=== PATIENT | female | born 1935 | race Caucasian/White ===

== ENCOUNTER → 2016-04-24 | Outpatient (CLI) | payer MEDICARE, BC ==
[2016-04-24 10:29] LABS: CHLORIDE,CL 104 mmol/L (98-110); SODIUM,NA 138 mmol/L (136-146)
== END ==
LOC: MW.CHFP 09:44
PROVIDERS: ATTEND Emergency Medicine
DX: M79.603 Pain in arm, unspecified (principal); I10 Essential (primary) hypertension
CPT/HCPCS: 36415; 80048; 85027; 85652; G0463

== ENCOUNTER 2016-05-12 12:40 | Emergency (ER) | payer MEDICARE, BC ==
--- NOTE | 2016-05-12 13:35 | EDM.PDOC ---
ED HPI GENERAL MEDICAL PROBLEM - General Chief Complaint: General Stated Complaint: DIZZY Time Seen by Provider: 05/12/16 12:44 Source of Information: Reports: Patient History Limitations: Reports: No limitations - History of Present Illness INITIAL COMMENTS - FREE TEXT/NARRATIVE: The patient presents for blood pressure check. She states that she is on 3 blood pressure medications. She ate her oatmeal and took her blood pressure medications. She then checked her blood pressure about 2 hours later and it was 188/89 and felt a little dizzy. She states that she just came here to get a recheck of but she was told that she had to be seen. Her blood pressure is now 162/74 she is completely asymptomatic. She never had any chest pain, SOB, visual symptoms or any other problems. She states that she will followup with her regular doctor for possibly tweaking her medication regimen. no pain Pain Score (Numeric/FACES): 0 - Related Data Allergies Allergy/AdvReac Type Severity Reaction Status Date / Time No Known Allergies Allergy Verified 05/12/16 12:49 Home Meds: Home Meds Aspirin [Low Dose Aspirin EC] 1 tab PO DAILY 03/21/14 [History] Flaxseed [Flaxseed Oil] 1 cap PO DAILY 03/21/14 [History] Losartan/Hydrochlorothiazide [Losartan-HCTZ 100-25 MG] 1 tab PO DAILY 03/21/14 [ History] Metoprolol Succinate 1 tab PO DAILY 03/21/14 [History] Potassium Chloride 20 meq PO DAILY 03/21/14 [History] amLODIPine [Norvasc] 5 mg PO DAILY 08/18/15 [History] Ca/D3/Mag#11/Zinc/Box Brander/Norman/Bor [Caltrate Plus Tablet] 1 each PO DAILY 05/12/16 [ History] Past Medical History HEENT History: Reports: None Cardiovascular History: Reports: Hypertension Respiratory History: Reports: None Gastrointestinal History: Reports: None Genitourinary History: Reports: None INTAKE MAN History: Reports: None Musculoskeletal History: Reports: None, Back pain, chronic Neurological History: Reports: None Psychiatric History: Reports: Anxiety Endocrine/Metabolic History: Reports: None Hematologic History: Reports: None Immunologic History: Reports: None Oncologic (Cancer) History: Reports: Breast Other Oncologic History: right breast Dermatologic History: Reports: None - Infectious Disease History Infectious Disease History: Reports: None - Past Surgical History Head Surgeries/Procedures: Reports: None HEENT Surgical History: Reports: None Cardiovascular Surgical History: Reports: None Respiratory Surgical History: Reports: None GI Surgical History: Reports: None Female Surgical History: Reports: Breast biopsy, Hysterectomy Oncologic Surgical History: Reports: Biopsy of breast Dermatological Surgical History: Reports: None Social & Family History - Family History Family Medical History: Noncontributory - Tobacco Use Smoking Status *Q: Never Smoker Years of Tobacco use: 10 Second Hand Smoke Exposure: No - Caffeine Use Caffeine Use: Reports: Coffee - Alcohol Use Days Per Week of Alcohol Use: 0 - Recreational Drug Use Recreational Drug Use: No ED ROS GENERAL - Review of Systems Review Of Systems: ROS reveals no pertinent complaints other than HPI. ED EXAM, GENERAL - Physical Exam Exam: See Below Exam Limited By: No limitations General Appearance: alert, no apparent distress Ears: normal external exam Nose: normal inspection Throat/Mouth: Normal inspection Head: atraumatic, normocephalic Neck: normal inspection Respiratory/Chest: no respiratory distress, lungs clear, normal breath sounds Cardiovascular: normal peripheral pulses, regular rate, rhythm, no edema, no murmur GI/Abdominal: soft Extremities: normal inspection Neurological: alert, oriented, normal cognition, no motor/sensory deficits Psychiatric: normal affect, normal mood Skin Exam: Warm, Dry, Intact, Normal color, No rash Lymphatic: no adenopathy Course - Vital Signs Last Recorded V/S: Last Vital Signs Temp 37.1 C 05/12/16 12:51 Pulse 77 05/12/16 12:51 Resp 16 05/12/16 12:51 BP 162/74 H 05/12/16 12:51 Pulse Ox 96 05/12/16 12:51 Departure - Departure Time of Disposition: 13:35 Disposition: Home, Self-Care 01 Condition: good Clinical Impression: Essential hypertension Forms: ED Department Discharge Additional Instructions: 1. return to ER promptly for chest pain, headache, stroke symptoms, elevated blood pressure at home. 2. see your primary care physician for a review of your blood pressure control regimen.
[2016-05-12 13:48] VITALS: BP 148/69
== END 2016-05-12 13:46 | disposition home or self-care (01) ==
LOC: MW.ED 12:40
DX: I10 Essential (primary) hypertension (principal); Z90.710 Acquired absence of both cervix and uterus; Z79.82 Long term (current) use of aspirin; Z79.899 Other long term (current) drug therapy; Z85.3 Personal history of malignant neoplasm of breast
CPT/HCPCS: 99282

== ENCOUNTER → 2016-05-15 | Outpatient (CLI) | payer MEDICARE, BC | LOC: MW.CHFP 08:00 | PROVIDERS: ATTEND Physician Assistant | DX: L01.00 Impetigo, unspecified (principal); I10 Essential (primary) hypertension | CPT/HCPCS: G0463 ==

== ENCOUNTER → 2016-06-28 | Outpatient (CLI) | payer MEDICARE, BC ==
--- NOTE | 2016-06-29 14:47 | MY ---
EXAMINATION: Bilateral digital mammography utilizing CAD. HISTORY: Screening exam. Comparison is made to previous studies dated 06/22/2015, 06/16/2014. FINDINGS: Bilateral heterogeneously dense breast tissue. Postsurgical changes are noted within th e left breast. No suspicious calcifications, masses or architectural distortions. No pathologic ap pearing lymph nodes, no abnormal skin thickening or nipple inversion. CAD highlighted regions appe ar normal at this time. IMPRESSION: BI-RADS category II - Benign finding. Continued screening according to ACR-ACS guidelin es suggested. THE FALSE-NEGATIVE RATE OF MAMMOGRAM IS APPROXIMATELY 10%. MANAGEMENT OF A PALPABLE ABNORMALITY MUST BE BASED UPON CLINICAL GROUNDS. SENSITIVITY FOR DETECTION OF ABNORMALITIES IN DENSE BREASTS IS LOW. NOTE: A letter will be sent to the patient regarding findings. [facility] -- KARMEN Verma [phone] - FAX [phone]
--- NOTE | 2016-07-03 12:57 | XA ---
Exam Date: 06/28/16 Patient's Age: 81 HEIGHT: 65.0 in. WEIGHT: 150.0 lbs. INDICATIONS: Breast CA, currently menopausal, hysterectomy FRACTURES: TREATMENTS: Amlodipine, Losartan, metoprolol ASSESSMENT: The BMD measured at AP Spine L1-L4 is 0.941 g/cm2 with a T-score of -2.0. This patient is [id number] osteopenic according to World Health Organization (WHO) criteria. Bone density is between 10% and 25% below young normal. Fracture risk is moderate. Treatment is advised. The BMD measured at Femur Troch Mean is 0.672 g/cm2 with a T-score of -1.6 is considered moderately low. Fracture risk is moderate. Treatment is advised if there are other risk factors. RESULTS: Site Region Age Classification T-Score BMD AP Spine L1-L4 81.1 Osteopenia -2.0 0.941 g/cm2 Dual Femur Neck Mean 81.1 Osteopenia -1.4 0.843 g/cm2 Dual Femur Troch Mean 81.1 N/A -1.6 0.672 g/cm2 Dual Femur Total Mean 81.1 Osteopenia -1.5 0.823 g/cm2 World Health Organization - Criteria for post-menopausal, women: Normal: T-Score at or above -1 SD Osteopenia: T-Score between -1 and -2.5 SD Osteoporosis: T-Score at or below -2.5 SD RECOMMENDATION: Pharmacologic treatment recommendations & Initiate pharmacologic treatment: - In those with hip or vertebral (clinical or asymptomatic) fractures - In those with T -scores <-2.5 at the femoral neck, total hip, or lumbar spine by DXA - In postmenopausal women and men age 50 and older with low bone mass (T-score between -1.0 and -2.5, osteopenia) at the femoral neck, total hip, or lumbar spine by DXA and a 10-year hip fracture probability >3 % or a 10-year major osteoporosis-related fracture probability >20% based on the [place]-adapted WHO absolute fracture risk model (Fracture Risk Algorithm (FRAX); www. NOF.org and www.shef.ac.uk/FRAX) FOLLOW UP: People with diagnosed cases of osteoporosis or at high risk for fracture should have regular bone mineral density tests. For patients eligible for Medicare, routine testing is allowed once every 2 years. The testing frequency can be increased to 1 year for patients who have rapidly progressing disease, those who are reviewing or discontinuing medial therapy to restore bone mass, or have additional risk factors. People with diagnosed cases of osteoporosis or osteopenia should be regularly tested for bone mineral density. For patient eligible for Medicare, routine testing is allowed once every 2 years. The testing frequency can be increased to 1 year for patients who have rapidly progressing disease, or for those who are receiving medial therapy to restore bone mass. [facility] [place] -- KARMEN Verma [phone] - FAX: [phone] XAVIER
== END ==
LOC: MW.MAM 13:01
PROVIDERS: ATTEND Emergency Medicine
DX: Z00.00 Encounter for general adult medical examination without abnormal findings (principal); Z12.31 Encounter for screening mammogram for malignant neoplasm of breast; M85.89 Other specified disorders of bone density and structure, multiple sites
CPT/HCPCS: 77080; G0202

== ENCOUNTER 2017-03-12 21:20 | Emergency (ER) | payer MEDICARE, BC ==
[2017-03-12] MEDS ORDERED: Sodium Chloride 0.9% 10 ML Syringe FLUSH PRN (21:24)
[2017-03-12] MEDS ORDERED: Sodium Chloride 0.9% 2.5 ML Syringe FLUSH PRN (21:24)
--- NOTE | 2017-03-12 21:26 | EDM.PDOC ---
ED HPI GENERAL MEDICAL PROBLEM - General Chief Complaint: Respiratory Problem Stated Complaint: SHORTNESS OF BREATH/COUGH Time Seen by Provider: 03/12/17 21:23 - History of Present Illness INITIAL COMMENTS - FREE TEXT/NARRATIVE: HISTORY AND PHYSICAL: History of present illness: Patient is an 81-year-old white female presents with a concern of cough and difficulty breathing she states she feels like her throat closes after coughing episodes she had a cough for 2-3 days but states this other issue is been times tonight she denies fever chills nausea vomiting chest pain abdominal pain or other concern Review of systems: As per history of present illness and below otherwise all systems reviewed and negative. Past medical history: As per history of present illness and as reviewed below otherwise noncontributory. Surgical history: As per history of present illness and as reviewed below otherwise noncontributory. Social history: No reported history of drug or alcohol abuse. Family history: As per history of present illness and as reviewed below otherwise noncontributory. Physical exam: HEENT: Atraumatic, normocephalic, pupils reactive, negative for conjunctival pallor or scleral icterus, mucous membranes moist, throat clear, neck supple, nontender, trachea midline. Lungs: Clear to auscultation, breath sounds equal bilaterally, chest nontender. Heart: S1S2, regular, negative for clicks, rubs, or JVD. Abdomen: Soft, nondistended, nontender. Negative for masses or hepatosplenomegaly. Negative for costovertebral tenderness. Pelvis: Stable nontender. Genitourinary: Deferred. Rectal: Deferred. Extremities: Atraumatic, negative for cords or calf pain. Neurovascular unremarkable. Neuro: Awake, alert, oriented. Cranial nerves II through XII unremarkable. Cerebellum unremarkable. Motor and sensory unremarkable throughout. Exam nonfocal. Diagnostics: CBC CMP troponin PT/INR chest x-ray soft tissue neck x-ray influenza screen Therapeutics: IV O2 monitor Impression: #1 dyspnea #2 pneumonitis Definitive disposition and diagnosis as appropriate pending reevaluation and review of above. - Related Data Allergies Allergy/AdvReac Type Severity Reaction Status Date / Time No Known Allergies Allergy Verified 03/12/17 21:44 Home Meds: Home Meds Aspirin [Low Dose Aspirin EC] 1 tab PO DAILY 03/21/14 [History] Flaxseed [Flaxseed Oil] 1 cap PO DAILY 03/21/14 [History] Losartan/Hydrochlorothiazide [Losartan-HCTZ 100-25 MG] 1 tab PO DAILY 03/21/14 [ History] Metoprolol Succinate 1 tab PO DAILY 03/21/14 [History] Potassium Chloride 20 meq PO DAILY 03/21/14 [History] amLODIPine [Norvasc] 5 mg PO DAILY 08/18/15 [History] Ca/D3/Mag#11/Zinc/Mash Filter Cloth Changer/Norman/Bor [Caltrate Plus Tablet] 1 each PO DAILY 05/12/16 [ History] Past Medical History HEENT History: Reports: None Cardiovascular History: Reports: Hypertension Respiratory History: Reports: None Gastrointestinal History: Reports: None Genitourinary History: Reports: None 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 Musculoskeletal History: Reports: None, Back Pain, Chronic Neurological History: Reports: None Psychiatric History: Reports: Anxiety Endocrine/Metabolic History: Reports: None Hematologic History: Reports: None Immunologic History: Reports: None Oncologic (Cancer) History: Reports: Breast Other Oncologic History: right breast Dermatologic History: Reports: None - Infectious Disease History Infectious Disease History: Reports: None - Past Surgical History Female Surgical History: Reports: Breast Biopsy, Hysterectomy Oncologic Surgical History: Reports: Biopsy of Breast Social & Family History - Family History Family Medical History: Noncontributory - Tobacco Use Smoking Status *Q: Never Smoker Years of Tobacco use: 10 Second Hand Smoke Exposure: No - Caffeine Use Caffeine Use: Reports: Coffee - Alcohol Use Days Per Week of Alcohol Use: 0 - Recreational Drug Use Recreational Drug Use: No ED ROS GENERAL - Review of Systems Review Of Systems: ROS reveals no pertinent complaints other than HPI. ED EXAM, GENERAL - Physical Exam Exam: See Below (See dictation) Course - Vital Signs Last Recorded V/S: Last Vital Signs Temp 36.3 C 03/12/17 21:44 Pulse 82 03/12/17 21:44 Resp 18 03/12/17 21:44 BP 188/79 H 03/12/17 21:44 Pulse Ox 97 03/12/17 21:44 - Orders/Labs/Meds Orders: Active Orders 24 hr Category Date Time Status Cardiac Monitoring [RC] . DIRECTED Care 03/12/17 21:24 Active EKG Documentation Completion [RC] STAT Care 03/12/17 21:24 Active Oxygen Therapy, ED [RC] ASDIRECTED Care 03/12/17 21:24 Active Pulse Oximetry [RC] ASDIRECTED Care 03/12/17 21:24 Active Chest 1V Frontal [CR] Stat Exams 03/12/17 21:24 Taken Neck Soft Tissue [CR] Stat Exams 03/12/17 21:24 Taken Sodium Chloride 0.9% [Normal Saline] 1,000 ml Med 03/12/17 21:30 Active IV STAT Sodium Chloride 0.9% [Saline Flush] Med 03/12/17 21:24 Active 10 ml FLUSH ASDIRECTED PRN Sodium Chloride 0.9% [Saline Flush] Med 03/12/17 21:24 Active 2.5 ml FLUSH ASDIRECTED PRN Saline Lock Insert [OM.PC] Stat Oth 03/12/17 21:24 Ordered Medication Orders Sodium Chloride (Normal Saline) 1,000 mls @ 125 mls/hr IV STAT MEENAKSHI Last Admin: 03/12/17 21:36 Dose: 125 mls/hr Sodium Chloride (Saline Flush) 10 ml FLUSH ASDIRECTED PRN PRN Reason: Keep Vein Open Sodium Chloride (Saline Flush) 2.5 ml FLUSH ASDIRECTED PRN PRN Reason: Keep Vein Open Labs: Laboratory Tests 03/12/17 03/12/17 03/12/17 Range/Units 21:32 21:32 21:32 WBC 5.02 (4.0-11.0) K/uL RBC 4.62 (4.30-5.90) M/uL Hgb 13.3 (12.0-16.0) g/dL Hct 39.3 (36.0-46.0) % MCV 85.1 (80.0-98.0) fL MCH 28.8 (27.0-32.0) pg MCHC 33.8 (31.0-37.0) g/dL RDW Std Deviation 41.9 (28.0-62.0) fl RDW Coeff of Cuauhtemoc 14 (11.0-15.0) % Plt Count 185 (150-400) K/uL MPV 9.60 (7.40-12.00) fL Add Manual Diff YES Neutrophils % (Manual) 28 L (48.0-80.0) % Band Neutrophils % 4 % Lymphocytes % (Manual) 60 H (16.0-40.0) % Monocytes % (Manual) 8 (0.0-15.0) % Nucleated RBC % 0.0 /100WBC Absolute Seg Neuts 1.4 (1.4-5.7) Band Neutrophils # 0.2 Lymphocytes # (Manual) 3.0 H (0.6-2.4) Monocytes # (Manual) 0.4 (0.0-0.8) Nucleated RBCs # 0 K/uL INR 1.09 (0.86-1.11) Sodium 134 L (136-146) mmol/L Potassium 3.3 L (3.5-5.1) mmol/L Chloride 100 (98-110) mmol/L Carbon Dioxide 21 (21-31) mmol/L BUN 25 H (6.0-23.0) mg/dL Creatinine 1.2 (0.6-1.5) mg/dL Est Cr Clr Drug Dosing 34.42 mL/min Estimated GFR (MDRD) 43.1 ml/min Glucose 101 (60-110) mg/dL Calcium 10.0 (8.8-10.8) mg/dL Total Bilirubin 0.3 (0.1-1.5) mg/dL AST 24 (5-40) IU/L ALT 18 (8-54) IU/L Alkaline Phosphatase 80 (40-150) Troponin I < 0.10 (0.0-0.29) NG/ML B-Natriuretic Peptide (<100) PG/ML Total Protein 7.9 (6.0-8.0) g/dL Albumin 4.3 (3.4-4.8) g/dL Globulin 3.6 H (2.0-3.5) g/dL Albumin/Globulin Ratio 1.2 L (1.3-2.8) Urine Color Urine Appearance Urine pH (5.0-8.0) Ur Specific Font[place] (1.001-1.035) Urine Protein (NEGATIVE) mg/dL Urine Glucose (UA) (NEGATIVE) mg/dL Urine Ketones (NEGATIVE) mg/dL Urine Occult Blood (NEGATIVE) Urine Nitrite (NEGATIVE) Urine Bilirubin (NEGATIVE) Urine Urobilinogen (<2.0) EU/dL Ur Leukocyte Esterase (NEGATIVE) Urine RBC (0-2/HPF) Urine WBC (0-5/HPF) Ur Epithelial Cells (NONE-FEW) Urine Bacteria (NEGATIVE) 03/12/17 03/12/17 Range/Units 21:32 21:37 WBC (4.0-11.0) K/uL RBC (4.30-5.90) M/uL Hgb (12.0-16.0) g/dL Hct (36.0-46.0) % MCV (80.0-98.0) fL MCH (27.0-32.0) pg MCHC (31.0-37.0) g/dL RDW Std Deviation (28.0-62.0) fl RDW Coeff of Cuauhtemoc (11.0-15.0) % Plt Count (150-400) K/uL MPV (7.40-12.00) fL Add Manual Diff Neutrophils % (Manual) (48.0-80.0) % Band Neutrophils % % Lymphocytes % (Manual) (16.0-40.0) % Monocytes % (Manual) (0.0-15.0) % Nucleated RBC % /100WBC Absolute Seg Neuts (1.4-5.7) Band Neutrophils # Lymphocytes # (Manual) (0.6-2.4) Monocytes # (Manual) (0.0-0.8) Nucleated RBCs # K/uL INR (0.86-1.11) Sodium (136-146) mmol/L Potassium (3.5-5.1) mmol/L Chloride (98-110) mmol/L Carbon Dioxide (21-31) mmol/L BUN (6.0-23.0) mg/dL Creatinine (0.6-1.5) mg/dL Est Cr Clr Drug Dosing mL/min Estimated GFR (MDRD) ml/min Glucose (60-110) mg/dL Calcium (8.8-10.8) mg/dL Total Bilirubin (0.1-1.5) mg/dL AST (5-40) IU/L ALT (8-54) IU/L Alkaline Phosphatase (40-150) Troponin I (0.0-0.29) NG/ML B-Natriuretic Peptide < 15 (<100) PG/ML Total Protein (6.0-8.0) g/dL Albumin (3.4-4.8) g/dL Globulin (2.0-3.5) g/dL Albumin/Globulin Ratio (1.3-2.8) Urine Color YELLOW Urine Appearance CLEAR Urine pH 5.5 (5.0-8.0) Ur Specific [place] 1.020 (1.001-1.035) Urine Protein NEGATIVE (NEGATIVE) mg/dL Urine Glucose (UA) NEGATIVE (NEGATIVE) mg/dL Urine Ketones NEGATIVE (NEGATIVE) mg/dL Urine Occult Blood SMALL H (NEGATIVE) Urine Nitrite NEGATIVE (NEGATIVE) Urine Bilirubin NEGATIVE (NEGATIVE) Urine Urobilinogen 0.2 (<2.0) EU/dL Ur Leukocyte Esterase SMALL (NEGATIVE) Urine RBC 1-2 (0-2/HPF) Urine WBC 1-2 (0-5/HPF) Ur Epithelial Cells FEW (NONE-FEW) Urine Bacteria FEW (NEGATIVE) Meds: Medications Generic Name Dose Route Start Last Admin Trade Name Freq PRN Reason Stop Dose Admin Sodium Chloride 1,000 mls @ 125 mls/hr 03/12/17 21:30 03/12/17 21:36 Normal Saline IV 125 mls/hr STAT MEENAKSHI Administration Sodium Chloride 10 ml 03/12/17 21:24 Saline Flush FLUSH ASDIRECTED PRN Keep Vein Open Sodium Chloride 2.5 ml 03/12/17 21:24 Saline Flush FLUSH ASDIRECTED PRN Keep Vein Open Departure - Departure Time of Disposition: 22:59 Disposition: Home, Self-Care 01 Condition: Good Clinical Impression: Tracheobronchitis - Discharge Information Forms: ED Department Discharge Additional Instructions: The following information is given to patients seen in the emergency department who are being discharged to home. This information is to outline your options for follow-up care. We provide all patients seen in our emergency department with a follow-up referral. The need for follow-up, as well as the timing and circumstances, are variable depending upon the specifics of your emergency department visit. If you don't have a primary care physician on staff, we will provide you with a referral. We always advise you to contact your personal physician following an emergency department visit to inform them of the circumstance of the visit and for follow-up with them and/or the need for any referrals to a consulting specialist. The emergency department will also refer you to a specialist when appropriate. This referral assures that you have the opportunity for followup care with a specialist. All of these measure are taken in an effort to provide you with optimal care, which includes your followup. Under all circumstances we always encourage you to contact your private physician who remains a resource for coordinating your care. When calling for followup care, please make the office aware that this follow-up is from your recent emergency room visit. If for any reason you are refused follow-up, please contact the [facility] emergency department at and asked to speak to the emergency department charge nurse. Augmentin as prescribed follow-up primary medical doctor 1-2 days return as needed as discussed push fluids - My Orders Last 24 Hours: My Active Orders 03/12/17 21:24 Cardiac Monitoring [RC] . DIRECTED EKG Documentation Completion [RC] STAT Oxygen Therapy, ED [RC] ASDIRECTED Pulse Oximetry [RC] ASDIRECTED Chest 1V Frontal [CR] Stat Neck Soft Tissue [CR] Stat Sodium Chloride 0.9% [Saline Flush] 10 ml FLUSH ASDIRECTED PRN Sodium Chloride 0.9% [Saline Flush] 2.5 ml FLUSH ASDIRECTED PRN Saline Lock Insert [OM.PC] Stat 03/12/17 21:30 Sodium Chloride 0.9% [Normal Saline] 1,000 ml IV STAT - Assessment/Plan Last 24 Hours: My Active Orders 03/12/17 21:24 Cardiac Monitoring [RC] . DIRECTED EKG Documentation Completion [RC] STAT Oxygen Therapy, ED [RC] ASDIRECTED Pulse Oximetry [RC] ASDIRECTED Chest 1V Frontal [CR] Stat Neck Soft Tissue [CR] Stat Sodium Chloride 0.9% [Saline Flush] 10 ml FLUSH ASDIRECTED PRN Sodium Chloride 0.9% [Saline Flush] 2.5 ml FLUSH ASDIRECTED PRN Saline Lock Insert [OM.PC] Stat 03/12/17 21:30 Sodium Chloride 0.9% [Normal Saline] 1,000 ml IV STAT
[2017-03-12] MEDS ORDERED: Sodium Chloride 0.9% 1,000 ML IV SCH (21:30)
[2017-03-12 22:07] LABS: CHLORIDE,CL 100 mmol/L (98-110); SODIUM,NA 134 mmol/L (136-146)
[2017-03-13 01:07] VITALS: BP 158/98
--- NOTE | 2017-03-13 14:16 | CR ---
EXAM DATE: 03/12/17 PATIENT'S AGE: 81 Patient: DAISY DAMICO Facility: [place], [place] Site . Site : 1935 Study: XRay Chest [id number]/[id number] 10:32:33 PM Ordering Physician: Francis Best Final Report: INDICATIONS: Cough. TECHNIQUE: Chest 1 view. COMPARISON: None FINDINGS: No pneumothorax or pleural effusion. Mild emphysema with biapical pleural- parenchymal scarring. The lungs are otherwise clear. Cardiac and mediastinal contours are within normal limits. Surgical clips in the right hemithorax. Bone demineralization and degenerative changes of the spine. IMPRESSION: No evidence of acute cardiopulmonary disease. Dictated by Vamsi Peoples MD @ 03/12/2017 10:55:37 PM Dictated by: Vamsi Peoples MD @ 03/12/2017 22:55:48 (Electronic Signature) Report Signed by Proxy. [email or web address]
--- NOTE | 2017-03-13 14:19 | CR ---
MEXAM DATE: 03/12/17 PATIENT'S AGE: 81 Patient: DAISY DAMICO Facility: [place], [place] Site . Site : 1935 Study: XRay ST Neck [id number] 10:33:18 PM Ordering Physician: Francis Best Final Report: INDICATION: Throat pain when coughing. TECHNIQUE: Soft tissue neck, two views. COMPARISON: None. FINDINGS: The prevertebral soft tissues and airway as imaged are unremarkable. The epiglottis is normal in appearance. No radiopaque foreign body demonstrated. Carotid artery calcifications. Bone demineralization and degenerative changes of the spine. IMPRESSION: Unremarkable soft tissue neck radiographs. Dictated by Vamsi Peoples MD @ 03/12/2017 10:54:14 PM Dictated by: Vamsi Peoples MD @ 03/12/2017 22:54:19 (Electronic Signature) Report Signed by Proxy. [email or web address]
== END 2017-03-12 23:17 | disposition home or self-care (01) ==
LOC: MW.ED 21:20
DX: J18.9 Pneumonia, unspecified organism (principal); J40 Bronchitis, not specified as acute or chronic; I10 Essential (primary) hypertension; Z79.82 Long term (current) use of aspirin; Z79.899 Other long term (current) drug therapy
CPT/HCPCS: 36415; 70360; 71045; 80053; 81001; 83880; 84484; 85025; 85610; 87804; 93005; 96360; 96361; 99285; J7040; 99284

== ENCOUNTER 2019-04-19 08:49 | Observation (INO) | payer MEDICARE, BC ==
[2019-04-19] MEDS ORDERED: Albuterol/Ipratropium 3.0-0.5 MG/3 ML Neb Soln NEB ONE ×2 (09:09→10:07)
--- NOTE | 2019-04-19 09:41 | CR ---
Chest: 2 views of the chest were obtained. Comparison: Prior chest x-ray of 03/12/17. Lungs are hyperinflated compatible with emphysematous change. Mild scoliosis is noted within the spine. Surgical clips are seen within the right breast. No acute parenchymal change is seen within either lung. Bony structures are osteopenic. Minimal degenerative change is scattered within the spine. Mild carotid artery calcification is seen. Impression: 1. Emphysematous change. 2. Other findings as noted above. 3. Nothing acute is appreciated. Diagnostic code #2 This report was dictated in [place] Standard Time
--- NOTE | 2019-04-19 09:55 | EDM.PDOC ---
ED HPI GENERAL MEDICAL PROBLEM - General Chief Complaint: Respiratory Problem Stated Complaint: COUGH Time Seen by Provider: 04/19/19 12:00 - History of Present Illness INITIAL COMMENTS - FREE TEXT/NARRATIVE: 83-year-old female history of hypertension nonsmoker presenting to ER for cough and shortness of breath. Her symptoms have been going on for 2 weeks. She says she has not had decreased exercise tolerance but that she hasn't really exert herself. denied chest pain, denied fever. No vomiting no leg swelling. Patient is concerned that she may have the flu. - Related Data Allergies Allergy/AdvReac Type Severity Reaction Status Date / Time No Known Allergies Allergy Verified 04/19/19 09:04 Home Meds: Home Meds Aspirin [Low Dose Aspirin EC] 1 tab PO DAILY 03/21/14 [History] Losartan/Hydrochlorothiazide [Losartan-HCTZ 100-25 MG] 1 tab PO DAILY 03/21/14 [ History] Metoprolol Succinate 1 tab PO DAILY 03/21/14 [History] Potassium Chloride 20 meq PO DAILY 03/21/14 [History] amLODIPine [Norvasc] 5 mg PO BID 08/18/15 [History] Cem/D3/Mag11/Zinc/Maintenance Trainer/Norman/Bor [Caltrate Plus Tablet] 1 each PO DAILY 05/12/16 [ History] oxyCODONE HCl/Acetaminophen [Oxycodone-Acetaminophen 5-325] 1 tab PO TID PRN [History] Past Medical History HEENT History: Reports: None Cardiovascular History: Reports: Hypertension Respiratory History: Reports: None Gastrointestinal History: Reports: None Genitourinary History: Reports: None P[employer] History: Reports: None Musculoskeletal History: Reports: None, Back Pain, Chronic Neurological History: Reports: None Psychiatric History: Reports: Anxiety Endocrine/Metabolic History: Reports: None Hematologic History: Reports: None Immunologic History: Reports: None Oncologic (Cancer) History: Reports: Breast Other Oncologic History: right breast Dermatologic History: Reports: None - Infectious Disease History Infectious Disease History: Reports: Chicken Pox, Measles, Mumps - Past Surgical History Head Surgeries/Procedures: Reports: None Female Surgical History: Reports: Breast Biopsy, Hysterectomy Oncologic Surgical History: Reports: Biopsy of Breast Social & Family History - Family History Family Medical History: Noncontributory - Tobacco Use Smoking Status *Q: Never Smoker - Caffeine Use Caffeine Use: Reports: Coffee - Recreational Drug Use Recreational Drug Use: No ED ROS GENERAL - Review of Systems Review Of Systems: See Below Constitutional: Denies: Fever HEENT: Reports: No Symptoms Respiratory: Reports: Shortness of Breath, Cough Cardiovascular: Reports: No Symptoms Endocrine: Reports: No Symptoms GI/Abdominal: Reports: No Symptoms : Reports: No Symptoms Musculoskeletal: Reports: No Symptoms Skin: Reports: No Symptoms Neurological: Reports: No Symptoms Psychiatric: Reports: No Symptoms Hematologic/Lymphatic: Reports: No Symptoms Immunologic: Reports: No Symptoms ED EXAM, GENERAL - Physical Exam Exam: See Below Exam Limited By: No Limitations General Appearance: Alert, No Apparent Distress Eye Exam: Bilateral Eye: Normal Inspection Nose: Normal Inspection Head: Atraumatic, Normocephalic Neck: Normal Inspection Respiratory/Chest: No Respiratory Distress, Other (mile expiratory wheezing noted ) Cardiovascular: Normal Peripheral Pulses, Regular Rate, Rhythm, No JVD. No: JVD GI/Abdominal: Soft (Female) Exam: Deferred. No: Normal External Exam Rectal (Female) Exam: Deferred Extremities: Normal Inspection, No Pedal Edema Neurological: Alert, Oriented, Normal Gait Psychiatric: Normal Affect Course - Vital Signs Last Recorded V/S: Last Vital Signs Temp 97.9 F 04/19/19 12:54 Pulse 97 04/19/19 14:09 Resp 18 04/19/19 12:54 BP 151/68 H 04/19/19 14:09 Pulse Ox 95 04/19/19 14:09 - Orders/Labs/Meds Orders: Active Orders 24 hr Category Date Time Status EKG 12 Lead [EKG Documentation Completion] [RC] URGENT Care 04/19/19 11:16 Active RT Aerosol Therapy [RC] ASDIRECTED Care 04/19/19 09:10 Active RT Aerosol Therapy [RC] ASDIRECTED Care 04/19/19 10:07 Active Labs: Laboratory Tests 04/19/19 04/19/19 04/19/19 Range/Units 09:30 09:30 09:30 WBC 12.67 H (4.0-11.0) K/uL RBC 4.67 (4.30-5.90) M/uL Hgb 13.1 (12.0-16.0) g/dL Hct 38.2 (36.0-46.0) % MCV 81.8 (80.0-98.0) fL MCH 28.1 (27.0-32.0) pg MCHC 34.3 (31.0-37.0) g/dL RDW Std Deviation 39.4 (28.0-62.0) fl RDW Coeff of Cuauhtemoc 13 (11.0-15.0) % Plt Count 308 (150-400) K/uL MPV 8.90 (7.40-12.00) fL Neut % (Auto) 70.5 (48.0-80.0) % Lymph % (Auto) 16.4 (16.0-40.0) % [place] % (Auto) 12.3 (0.0-15.0) % Eos % (Auto) 0.5 (0.0-7.0) % Baso % (Auto) 0.3 (0.0-1.5) % Neut # (Auto) 8.9 H (1.4-5.7) K/uL Lymph # (Auto) 2.1 (0.6-2.4) K/uL [place]win # (Auto) 1.6 H (0.0-0.8) K/uL Eos # (Auto) 0.1 (0.0-0.7) K/uL Baso # (Auto) 0.0 (0.0-0.1) K/uL Nucleated RBC % 0.0 /100WBC Nucleated RBCs # 0 K/uL D-Dimer, Quantitative 0.54 H (0.0-0.50) mg/L FEU Sodium 133 L (136-145) mmol/L Potassium 3.4 L (3.5-5.1) mmol/L Chloride 96 L (98-107) mmol/L Carbon Dioxide 25.6 (21.0-32.0) mmol/L BUN 16 (7.0-18.0) mg/dL Creatinine 1.1 H (0.6-1.0) mg/dL Est Cr Clr Drug Dosing 34.87 mL/min Estimated GFR (MDRD) 47.4 ml/min Glucose 106 (74-106) mg/dL Calcium 9.4 (8.5-10.1) mg/dL Total Bilirubin 0.6 (0.2-1.0) mg/dL AST 15 (15-37) IU/L ALT 20 (14-63) IU/L Alkaline Phosphatase 105 (46-116) U/L Troponin I (0.000-0.056) ng/mL B-Natriuretic Peptide (<100) PG/ML Total Protein 8.8 H (6.4-8.2) g/dL Albumin 3.5 (3.4-5.0) g/dL Globulin 5.3 H (2.6-4.0) g/dL Albumin/Globulin Ratio 0.7 L (0.9-1.6) 04/19/19 04/19/19 Range/Units 09:30 09:30 WBC (4.0-11.0) K/uL RBC (4.30-5.90) M/uL Hgb (12.0-16.0) g/dL Hct (36.0-46.0) % MCV (80.0-98.0) fL MCH (27.0-32.0) pg MCHC (31.0-37.0) g/dL RDW Std Deviation (28.0-62.0) fl RDW Coeff of Cuauhtemoc (11.0-15.0) % Plt Count (150-400) K/uL MPV (7.40-12.00) fL Neut % (Auto) (48.0-80.0) % Lymph % (Auto) (16.0-40.0) % Irwin % (Auto) (0.0-15.0) % Eos % (Auto) (0.0-7.0) % Baso % (Auto) (0.0-1.5) % Neut # (Auto) (1.4-5.7) K/uL Lymph # (Auto) (0.6-2.4) K/uL Irwin # (Auto) (0.0-0.8) K/uL Eos # (Auto) (0.0-0.7) K/uL Baso # (Auto) (0.0-0.1) K/uL Nucleated RBC % /100WBC Nucleated RBCs # K/uL D-Dimer, Quantitative (0.0-0.50) mg/L FEU Sodium (136-145) mmol/L Potassium (3.5-5.1) mmol/L Chloride (98-107) mmol/L Carbon Dioxide (21.0-32.0) mmol/L BUN (7.0-18.0) mg/dL Creatinine (0.6-1.0) mg/dL Est Cr Clr Drug Dosing mL/min Estimated GFR (MDRD) ml/min Glucose (74-106) mg/dL Calcium (8.5-10.1) mg/dL Total Bilirubin (0.2-1.0) mg/dL AST (15-37) IU/L ALT (14-63) IU/L Alkaline Phosphatase (46-116) U/L Troponin I < 0.050 (0.000-0.056) ng/mL B-Natriuretic Peptide 39 (<100) PG/ML Total Protein (6.4-8.2) g/dL Albumin (3.4-5.0) g/dL Globulin (2.6-4.0) g/dL Albumin/Globulin Ratio (0.9-1.6) Meds: Medications Discontinued Medications Generic Name Dose Route Start Last Admin Trade Name Freq PRN Reason Stop Dose Admin Albuterol/Ipratropium 3 ml 04/19/19 09:09 04/19/19 09:27 Duoneb 3.0-0.5 Mg/3 Ml NEB 04/19/19 09:10 3 ml ONETIME ONE Administration Albuterol/Ipratropium 3 ml 04/19/19 10:07 04/19/19 10:17 Duoneb 3.0-0.5 Mg/3 Ml NEB 04/19/19 10:08 3 ml ONETIME ONE Administration Azithromycin 500 mg 04/19/19 14:27 04/19/19 14:49 Zithromax PO 04/19/19 14:28 500 mg Q24H ONE Administration Sodium Chloride 1,000 mls @ 500 mls/hr 04/19/19 12:42 04/19/19 12:53 Normal Saline IV 04/19/19 14:41 500 mls/hr .BOLUS ONE Administration Iopamidol 50 ml 04/19/19 13:40 04/19/19 13:41 Isovue Multipack-370 (76%) IVPUSH 04/19/19 13:41 50 ml ONETIME ONE Administration Prednisone 40 mg 04/19/19 11:01 04/19/19 11:08 Prednisone PO 04/19/19 11:02 40 mg ONETIME ONE Administration - Re-Assessments/Exams Free Text/Narrative Re-Assessment/Exam: 04/19/19 15:10 Patient presented for cough or shortness of breath. Has been hypoxic to the low 90s. Slightly tachycardia. On exam she had some dyspnea on exertion, very mild expiratory wheezing. She desatted while ambulating. She did not improve after prednisone and neb treatments. CT PE showed possible pneumonitis. Troponin negative. BNP negative. ECG was nsr, no ischemic changes. Departure - Departure Time of Disposition: 15:14 Disposition: Admitted As Inpatient 66 Clinical Impression: COPD (chronic obstructive pulmonary disease) - Discharge Information Referrals: Danny Savage MD [Primary Care Provider] - Forms: ED Department Discharge Sepsis Event Note - Evaluation Sepsis Screening Result: No Definite Risk - Focused Exam Vital Signs: Vital Signs Temp Pulse Resp BP Pulse Ox 04/19/19 14:09 97 151/68 H 95 04/19/19 12:54 97.9 F 102 H 18 141/76 H 91 L 04/19/19 12:22 89 18 93 L 04/19/19 09:56 96 18 93 L 04/19/19 09:05 96.8 F L 95 20 148/69 H 94 L Date Exam was Performed: 04/19/19 Time Exam was Performed: 15:10 - My Orders Last 24 Hours: My Active Orders 04/19/19 09:10 RT Aerosol Therapy [RC] ASDIRECTED 04/19/19 10:07 RT Aerosol Therapy [RC] ASDIRECTED 04/19/19 11:16 EKG 12 Lead [EKG Documentation Completion] [RC] URGENT - Assessment/Plan Last 24 Hours: My Active Orders 04/19/19 09:10 RT Aerosol Therapy [RC] ASDIRECTED 04/19/19 10:07 RT Aerosol Therapy [RC] ASDIRECTED 04/19/19 11:16 EKG 12 Lead [EKG Documentation Completion] [RC] URGENT
[2019-04-19 09:59] LABS: CARBON DIOXIDE,CO2 25.6 mmol/L (21.0-32.0); POTASSIUM,K 3.4 mmol/L (3.5-5.1)
[2019-04-19] MEDS ORDERED: predniSONE 20 MG Tab PO ONE (11:01)
[2019-04-19] MEDS ORDERED: Sodium Chloride 0.9% 1,000 ML IV ONE (12:42)
[2019-04-19] MEDS ORDERED: Iopamidol 755 MG/ML 200 ML Multipack Bottle IVPUSH ONE (13:40)
--- NOTE | 2019-04-19 14:09 | CT ---
INDICATION : Dyspnea with cough. Elevated D-dimer. COMPARISON: None. TECHNIQUE: 50 mL Isovue-370 IV contrast with pulmonary arterial imaging. FINDINGS: Adequate pulmonary arterial vascular opacification. No filling defect appreciated. Peribronchial airspace opacities with nodular and patchy ill-defined appearance in the is left greater than right lower lobes with multiple associated fluid filled bronchi bilaterally. Mild pectus excavatum. Upper normal heart size. No pathologic adenopathy. IMPRESSION: 1. No pulmonary embolism. 2. Bilateral presumed aspiration pneumonitis, left greater than right. Please note that all CT scans at this facility use dose modulation, iterative reconstruction, and/or weight-based dosing when appropriate to reduce radiation dose to as low as reasonably achievable. Dictated by Jese Wright MD @ Apr 19 2019 2:02PM Signed by Dr. Jese Wright @ Apr 19 2019 2:06PM
[2019-04-19] MEDS ORDERED: Azithromycin 250 MG Tab PO ONE (14:27)
[2019-04-19] MEDS ORDERED: Acetaminophen 325 MG Tab PO PRN (17:11)
--- NOTE | 2019-04-19 17:18 | PCM.HP.2 ---
H&P History of Present Illness - General Date of Service: 04/19/19 Admit Problem/Dx: Admission Diagnosis/Problem Admission Diagnosis/Problem Hypoxia - History of Present Illness Initial Comments - Free Text/Narative: 83-year-old female history of hypertension, childhood asthma, h/o remote smoking in her 20s, currently nonsmoker presenting to ER for cough and shortness of breath. Patient states that her symptoms have been going on for 2 weeks. Patient sttaes she is usually very active but has not been able to exert herslef much without getting short of breath. Also c/o og having cold sores on her lips. Also c/o decreased appetite for past few days. Patient denied chest pain, denied fever. No vomiting no leg swelling. Patient is was found to be in low 90s in ER. Received some breathing treatments but her symptoms didn't improve much. CXR was unremarkable. D-Dimer was elevated so CTA was obtained which was negative for PE. WBC count slightly elevated, no fever, BP stable, creatinine was slightly elevated as well. Flu swab was negative, Patient is being admitted for management of possible COPD exacerbation with bronchitis. - Related Data Allergies/Adverse Reactions: Allergies Allergy/AdvReac Type Severity Reaction Status Date / Time No Known Allergies Allergy Verified 04/19/19 17:38 Home Medications: Home Meds Aspirin [Low Dose Aspirin EC] 1 tab PO DAILY 03/21/14 [History] Losartan/Hydrochlorothiazide [Losartan-HCTZ 100-25 MG] 100 mg PO DAILY 03/21/14 [History] Metoprolol Succinate 100 mg PO DAILY 03/21/14 [History] Potassium Chloride 10 meq PO BID 03/21/14 [History] amLODIPine [Norvasc] 10 mg PO BEDTIME 08/18/15 [History] Cem/D3/Mag11/Zinc/Weeder Thinner/Norman/Bor [Caltrate Plus Tablet] 1 each PO DAILY 05/12/16 [ History] oxyCODONE HCl/Acetaminophen [Oxycodone-Acetaminophen 5-325] 1 tab PO TID PRN [History] [place]-3 Fatty Acids/Fish Oil [Fish Oil 1,200 mg Softgel] 1 cap DAILY 04/19/19 [ History] hydroCHLOROthiazide [Hydrochlorothiazide] 25 mg PO DAILY 04/19/19 [History] Past Medical History HEENT History: Reports: None Cardiovascular History: Reports: Hypertension Respiratory History: Reports: None Gastrointestinal History: Reports: None Genitourinary History: Reports: None [employer] SALES History: Reports: None Musculoskeletal History: Reports: None, Back Pain, Chronic Neurological History: Reports: None Psychiatric History: Reports: Anxiety Endocrine/Metabolic History: Reports: None Hematologic History: Reports: None Immunologic History: Reports: None Oncologic (Cancer) History: Reports: Breast Other Oncologic History: right breast Dermatologic History: Reports: None - Infectious Disease History Infectious Disease History: Reports: Chicken Pox, Measles, Mumps - Past Surgical History Head Surgeries/Procedures: Reports: None Female Surgical History: Reports: Breast Biopsy, Hysterectomy Oncologic Surgical History: Reports: Biopsy of Breast Social & Family History - Family History Family Medical History: Noncontributory - Tobacco Use Smoking Status *Q: Never Smoker - Caffeine Use Caffeine Use: Reports: Coffee - Recreational Drug Use Recreational Drug Use: No H&P Review of Systems - Review of Systems: Review Of Systems: See Below General: Reports: Malaise, Weakness, Fatigue, Decreased Appetite. Denies: Fever , Chills, Diaphoresis HEENT: Denies: Dysphasia, Ear Pain Pulmonary: Reports: Shortness of Breath, Wheezing, Cough. Denies: Sputum Cardiovascular: Reports: Dyspnea on Exertion. Denies: Chest Pain, Palpitations , Orthopnea, Lightheadedness, Syncope, Claudication Gastrointestinal: Denies: Abdominal Pain, Anorexia, Black Stool, Bloody Stool Genitourinary: Denies: Dysuria, Frequency, Burning Musculoskeletal: Denies: Neck Pain, Shoulder Pain, Arm Pain Skin: Denies: Cyanosis, Jaundice, Mottled Psychiatric: Denies: Confusion, Depression, Mood Lability Neurological: Denies: Confusion, Dizziness, Headache Hematologic/Lymphatic: Denies: Anemia, Easy Bleeding, Easy Bruising Exam - Exam Exam: See Below - Vital Signs Vital Signs: Last Vital Signs Temp 36.6 C 04/19/19 12:54 Pulse 97 04/19/19 14:09 Resp 18 04/19/19 12:54 BP 151/68 H 04/19/19 14:09 Pulse Ox 95 04/19/19 14:09 Weight: 72.575 kg - Exam Quality Assessment: Supplemental Oxygen General: Alert, Oriented HEENT: Conjunctiva Clear, Other Neck: Supple, Trachea Midline Lungs: Decreased Breath Sounds, Wheezing Cardiovascular: Regular Rate, Regular Rhythm GI/Abdominal Exam: Normal Bowel Sounds, Soft, Non-Tender Skin: Warm, Dry Neuro Extensive - Mental Status: Alert, Oriented x3, Normal Mood/Affect, Normal Cognition - Patient Data Lab Results Last 24 hrs: Laboratory Results - last 24 hr 04/19/19 04/19/19 04/19/19 Range/Units 09:30 09:30 09:30 WBC 12.67 H (4.0-11.0) K/uL RBC 4.67 (4.30-5.90) M/uL Hgb 13.1 (12.0-16.0) g/dL Hct 38.2 (36.0-46.0) % MCV 81.8 (80.0-98.0) fL MCH 28.1 (27.0-32.0) pg MCHC 34.3 (31.0-37.0) g/dL RDW Std Deviation 39.4 (28.0-62.0) fl RDW Coeff of Cuauhtemoc 13 (11.0-15.0) % Plt Count 308 (150-400) K/uL MPV 8.90 (7.40-12.00) fL Neut % (Auto) 70.5 (48.0-80.0) % Lymph % (Auto) 16.4 (16.0-40.0) % [place] % (Auto) 12.3 (0.0-15.0) % Eos % (Auto) 0.5 (0.0-7.0) % Baso % (Auto) 0.3 (0.0-1.5) % Neut # (Auto) 8.9 H (1.4-5.7) K/uL Lymph # (Auto) 2.1 (0.6-2.4) K/uL [place] # (Auto) 1.6 H (0.0-0.8) K/uL Eos # (Auto) 0.1 (0.0-0.7) K/uL Baso # (Auto) 0.0 (0.0-0.1) K/uL Nucleated RBC % 0.0 /100WBC Nucleated RBCs # 0 K/uL D-Dimer, Quantitative 0.54 H (0.0-0.50) mg/L FEU Sodium 133 L (136-145) mmol/L Potassium 3.4 L (3.5-5.1) mmol/L Chloride 96 L (98-107) mmol/L Carbon Dioxide 25.6 (21.0-32.0) mmol/L BUN 16 (7.0-18.0) mg/dL Creatinine 1.1 H (0.6-1.0) mg/dL Est Cr Clr Drug Dosing 34.87 mL/min Estimated GFR (MDRD) 47.4 ml/min Glucose 106 (74-106) mg/dL Calcium 9.4 (8.5-10.1) mg/dL Total Bilirubin 0.6 (0.2-1.0) mg/dL AST 15 (15-37) IU/L ALT 20 (14-63) IU/L Alkaline Phosphatase 105 (46-116) U/L Troponin I (0.000-0.056) ng/mL B-Natriuretic Peptide (<100) PG/ML Total Protein 8.8 H (6.4-8.2) g/dL Albumin 3.5 (3.4-5.0) g/dL Globulin 5.3 H (2.6-4.0) g/dL Albumin/Globulin Ratio 0.7 L (0.9-1.6) 04/19/19 04/19/19 Range/Units 09:30 09:30 WBC (4.0-11.0) K/uL RBC (4.30-5.90) M/uL Hgb (12.0-16.0) g/dL Hct (36.0-46.0) % MCV (80.0-98.0) fL MCH (27.0-32.0) pg MCHC (31.0-37.0) g/dL RDW Std Deviation (28.0-62.0) fl RDW Coeff of Cuauhtemoc (11.0-15.0) % Plt Count (150-400) K/uL MPV (7.40-12.00) fL Neut % (Auto) (48.0-80.0) % Lymph % (Auto) (16.0-40.0) % [place] % (Auto) (0.0-15.0) % Eos % (Auto) (0.0-7.0) % Baso % (Auto) (0.0-1.5) % Neut # (Auto) (1.4-5.7) K/uL Lymph # (Auto) (0.6-2.4) K/uL [place] # (Auto) (0.0-0.8) K/uL Eos # (Auto) (0.0-0.7) K/uL Baso # (Auto) (0.0-0.1) K/uL Nucleated RBC % /100WBC Nucleated RBCs # K/uL D-Dimer, Quantitative (0.0-0.50) mg/L FEU Sodium (136-145) mmol/L Potassium (3.5-5.1) mmol/L Chloride (98-107) mmol/L Carbon Dioxide (21.0-32.0) mmol/L BUN (7.0-18.0) mg/dL Creatinine (0.6-1.0) mg/dL Est Cr Clr Drug Dosing mL/min Estimated GFR (MDRD) ml/min Glucose (74-106) mg/dL Calcium (8.5-10.1) mg/dL Total Bilirubin (0.2-1.0) mg/dL AST (15-37) IU/L ALT (14-63) IU/L Alkaline Phosphatase (46-116) U/L Troponin I < 0.050 (0.000-0.056) ng/mL B-Natriuretic Peptide 39 (<100) PG/ML Total Protein (6.4-8.2) g/dL Albumin (3.4-5.0) g/dL Globulin (2.6-4.0) g/dL Albumin/Globulin Ratio (0.9-1.6) Result Diagrams: 04/19/19 09:30 04/19/19 09:30 [facility] Results Last 24 hrs: Microbiology 04/19/19 09:25 Influenza Type A Antigen Screen - Final Nasopharyngeal Swab NEGATIVE INFLUENZA A VIRUS AG REFERENCE RANGE: NEGATIVE Influenza Type B Antigen Screen - Final NEGATIVE INFLUENZA B VIRUS AG REFERENCE RANGE: NEGATIVE Sepsis Event Note - Evaluation Sepsis Screening Result: No Definite Risk - Focused Exam Vital Signs: Vital Signs Temp Pulse Resp BP Pulse Ox 04/19/19 14:09 97 151/68 H 95 04/19/19 12:54 36.6 C 102 H 18 141/76 H 91 L 04/19/19 12:22 89 18 93 L 04/19/19 09:56 96 18 93 L 04/19/19 09:05 36.0 C L 95 20 148/69 H 94 L Date Exam was Performed: 04/19/19 Time Exam was Performed: 19:16 - Problem List (1) Bronchitis SNOMED Code(s): 49062340 ICD Code: J40 - BRONCHITIS, NOT SPECIFIED ACUTE OR CHRONIC Status: Acute Current Visit: Yes (2) COPD (chronic obstructive pulmonary disease) SNOMED Code(s): 62223736 ICD Code: J44.9 - CHRONIC OBSTRUCTIVE PULMONARY DISEASE, UNSPECIFIED Status : Acute Current Visit: Yes (3) Essential hypertension SNOMED Code(s): 32609764 ICD Code: I10 - ESSENTIAL (PRIMARY) HYPERTENSION Status: Acute Current Visit: No Problem List Initiated/Reviewed/Updated: Yes Orders Last 24hrs: Active Orders 24 hr Category Date Time Status Admission Status [Patient Status] [ADT] Stat ADT 04/19/19 15:14 Active Ambulate [RC] ASDIRECTED Care 04/19/19 17:11 Active Antiembolic Devices [RC] PER UNIT ROUTINE Care 04/19/19 17:12 Active EKG 12 Lead [EKG Documentation Completion] [RC] URGENT Care 04/19/19 11:16 Active Oxygen Therapy [RC] PRN Care 04/19/19 17:11 Active Pulse Oximetry [RC] PRN Care 04/19/19 17:11 Active RT Aerosol Therapy [RC] ASDIRECTED Care 04/19/19 09:10 Active RT Aerosol Therapy [RC] ASDIRECTED Care 04/19/19 10:07 Active RT Aerosol Therapy [RC] ASDIRECTED Care 04/19/19 17:15 Active VTE/DVT Education [RC] PER UNIT ROUTINE Care 04/19/19 17:11 Active Vital Signs [RC] Q4H Care 04/19/19 17:11 Active Heart Healthy Diet [DIET] Diet 04/19/19 Breakfast Active UA W/MICROSCOPIC [URIN] Routine Lab 04/19/19 17:11 Ordered Acetaminophen [Tylenol] Med 04/19/19 17:11 Ordered 650 mg PO Q4H PRN Albuterol/Ipratropium [DuoNeb 3.0-0.5 MG/3 ML] Med 04/19/19 17:11 Ordered 3 ml NEB Q4HRRT PRN Sodium Chloride 0.9% [Normal Saline] 1,000 ml Med 04/19/19 17:15 Ordered IV ASDIRECTED methylPREDNISolone Sod Succ [Solu-MEDROL] Med 04/20/19 09:00 Ordered 40 mg IVPUSH Q12H Sequential Compression Device [OM.PC] Per Unit Routine Oth 04/19/19 17:11 Ordered Medication Orders Acetaminophen (Tylenol) 650 mg PO Q4H PRN PRN Reason: Pain (Mild 1-3)/fever Albuterol/Ipratropium (Duoneb 3.0-0.5 Mg/3 Ml) 3 ml NEB Q4HRRT PRN PRN Reason: Shortness Of Breath/wheezing Sodium Chloride (Normal Saline) 1,000 mls @ 125 mls/hr IV ASDIRECTED [facility] Methylprednisolone Sodium Succinate (Solu-Medrol) 40 mg IVPUSH Q12H [facility] Assessment/Plan Comment:: A/P: 83 y/o F admitted for COPD/Bronchitis cont IV steroids, wean down as clinically appropriate cont oxygenation via nasal cannula DuoNebs PRN shortness of breath Azithromycin 250 PO daily resume home meds, hold Lopressor Topical acyclovir for herpes labialis monitor and replete electrolytes SCD for DVT ppx Dispo: d/c in 1-2 days
[2019-04-19] MEDS: Sodium Chloride 0.9% 1,000 ML IV SCH (18:26)
[2019-04-19] MEDS ORDERED: Acetaminophen/oxyCODONE 325-5 MG Tab PO PRN (19:11)
[2019-04-19] MEDS ORDERED: Potassium Chloride 10% 20 MEQ/15 ML Soln 30 ML UD Cup PO ONE (19:24)
[2019-04-19] MEDS: amLODIPine 5 MG Tab PO SCH (20:41)
[2019-04-20] MEDS: Sodium Chloride 0.9% 1,000 ML IV SCH ×2 (02:26→12:21)
[2019-04-20] MEDS: Albuterol/Ipratropium 3.0-0.5 MG/3 ML Neb Soln NEB PRN ×2 (06:48→09:21)
[2019-04-20] MEDS ORDERED: Magnesium Sulfate/Water 2 GM in Premix Bag 1 BAG IV ONE (08:11)
[2019-04-20] MEDS: methylPREDNISolone Sodium Succinate 40 MG/1 ML SDV IVPUSH SCH ×2 (08:28→21:43)
[2019-04-20] MEDS: Phosphorus #1 250 MG Tab PO SCH ×3 (08:32→17:39)
[2019-04-20] MEDS: Hydrochlorothiazide 25 MG Tab PO SCH (08:32)
[2019-04-20] MEDS: Azithromycin 250 MG Tab PO SCH (08:33)
[2019-04-20] MEDS: Aspirin 81 MG Tab.EC PO SCH (08:33)
[2019-04-20] MEDS: Fish Oil/Omega-3 Fatty Acids 1 Gm Cap PO SCH (08:36)
[2019-04-20] MEDS ORDERED: Benzonatate 100 MG Cap PO PRN (09:32)
[2019-04-20] MEDS: Fluticasone Propionate Nasal Spray 16 GM Bottle NASBOTH SCH (09:59)
[2019-04-20] MEDS: Acyclovir 200 MG Cap PO SCH ×3 (10:00→21:36)
[2019-04-20] MEDS: Albuterol/Ipratropium 3.0-0.5 MG/3 ML Neb Soln NEB SCH ×4 (10:13→21:21)
--- NOTE | 2019-04-20 11:55 | PCM.PN ---
- General Info Date of Service: 04/20/19 Admission Dx/Problem (Free Text): Admission Diagnosis/Problem Admission Diagnosis/Problem Hypoxia Subjective Update: Feeling SOB this morning, coughing a lot. doesn't feel safe to go home yet. Feels sinus congested. Functional Status: Reports: Pain Controlled, Tolerating Diet, Ambulating, Urinating - Review of Systems General: Reports: Malaise HEENT: Reports: Headaches, Sinus Congestion Pulmonary: Reports: Shortness of Breath, Cough, Wheezing. Denies: Sputum Cardiovascular: Reports: No Symptoms. Denies: Chest Pain, Palpitations Gastrointestinal: Reports: No Symptoms. Denies: Abdominal Pain, Nausea, Vomiting Genitourinary: Reports: No Symptoms Musculoskeletal: Reports: No Symptoms Skin: Reports: No Symptoms Neurological: Reports: No Symptoms Psychiatric: Reports: No Symptoms - Patient Data Vitals - Most Recent: Last Vital Signs Temp 98.3 F 04/20/19 07:53 Pulse 95 04/20/19 07:53 Resp 16 04/20/19 07:53 BP 141/64 H 04/20/19 07:53 Pulse Ox 93 L 04/20/19 07:53 Weight - Most Recent: 72.575 kg I&O - Last 24 Hours: Intake & Output 04/19/19 04/20/19 04/20/19 22:59 06:59 14:59 Intake Total 1930 Output Total 1250 Balance 680 Lab Results Last 24 Hours: Laboratory Results - last 24 hr 04/19/19 04/19/19 04/20/19 Range/Units 09:30 09:30 00:30 WBC (4.0-11.0) K/uL RBC (4.30-5.90) M/uL Hgb (12.0-16.0) g/dL Hct (36.0-46.0) % MCV (80.0-98.0) fL MCH (27.0-32.0) pg MCHC (31.0-37.0) g/dL RDW Std Deviation (28.0-62.0) fl RDW Coeff of Cuauhtemoc (11.0-15.0) % Plt Count (150-400) K/uL MPV (7.40-12.00) fL Neut % (Auto) (48.0-80.0) % Lymph % (Auto) (16.0-40.0) % [place] % (Auto) (0.0-15.0) % Eos % (Auto) (0.0-7.0) % Baso % (Auto) (0.0-1.5) % Neut # (Auto) (1.4-5.7) K/uL Lymph # (Auto) (0.6-2.4) K/uL [place] # (Auto) (0.0-0.8) K/uL Eos # (Auto) (0.0-0.7) K/uL Baso # (Auto) (0.0-0.1) K/uL Nucleated RBC % /100WBC Nucleated RBCs # K/uL D-Dimer, Quantitative 0.54 H (0.0-0.50) mg/L FEU Sodium (136-145) mmol/L Potassium (3.5-5.1) mmol/L Chloride (98-107) mmol/L Carbon Dioxide (21.0-32.0) mmol/L BUN (7.0-18.0) mg/dL Creatinine (0.6-1.0) mg/dL Est Cr Clr Drug Dosing mL/min Estimated GFR (MDRD) ml/min Glucose (74-106) mg/dL Calcium (8.5-10.1) mg/dL Phosphorus (2.6-4.7) mg/dL Magnesium (1.8-2.4) mg/dL B-Natriuretic Peptide 39 (<100) PG/ML Urine Color YELLOW Urine Appearance CLEAR Urine pH 5.5 (5.0-8.0) Ur Specific [place] 1.010 (1.001-1.035) Urine Protein NEGATIVE (NEGATIVE) mg/dL Urine Glucose (UA) NEGATIVE (NEGATIVE) mg/dL Urine Ketones NEGATIVE (NEGATIVE) mg/dL Urine Occult Blood NEGATIVE (NEGATIVE) Urine Nitrite NEGATIVE (NEGATIVE) Urine Bilirubin NEGATIVE (NEGATIVE) Urine Urobilinogen 0.2 (<2.0) EU/dL Ur Leukocyte Esterase NEGATIVE (NEGATIVE) Urine RBC 0-1 (0-2/HPF) Urine WBC 0-1 (0-5/HPF) Ur Epithelial Cells RARE (NONE-FEW) Urine Bacteria RARE (NEGATIVE) 04/20/19 04/20/19 Range/Units 05:20 05:20 WBC 12.17 H (4.0-11.0) K/uL RBC 3.87 L (4.30-5.90) M/uL Hgb 10.7 L (12.0-16.0) g/dL Hct 31.6 L (36.0-46.0) % MCV 81.7 (80.0-98.0) fL MCH 27.6 (27.0-32.0) pg MCHC 33.9 (31.0-37.0) g/dL RDW Std Deviation 39.5 (28.0-62.0) fl RDW Coeff of Cu[place]em[place] 13 (11.0-15.0) % Plt Count 303 (150-400) K/uL MPV 9.00 (7.40-12.00) fL Neut % (Auto) 73.1 (48.0-80.0) % Lymph % (Auto) 16.6 (16.0-40.0) % [place] % (Auto) 10.1 (0.0-15.0) % Eos % (Auto) 0.1 (0.0-7.0) % Baso % (Auto) 0.1 (0.0-1.5) % Neut # (Auto) 8.9 H (1.4-5.7) K/uL Lymph # (Auto) 2.0 (0.6-2.4) K/uL [place] # (Auto) 1.2 H (0.0-0.8) K/uL Eos # (Auto) 0.0 (0.0-0.7) K/uL Baso # (Auto) 0.0 (0.0-0.1) K/uL Nucleated RBC % 0.0 /100WBC Nucleated RBCs # 0 K/uL D-Dimer, Quantitative (0.0-0.50) mg/L FEU Sodium 136 (136-145) mmol/L Potassium 4.0 (3.5-5.1) mmol/L Chloride 102 (98-107) mmol/L Carbon Dioxide 23.0 (21.0-32.0) mmol/L BUN 15 (7.0-18.0) mg/dL Creatinine 0.9 (0.6-1.0) mg/dL Est Cr Clr Drug Dosing 39.18 mL/min Estimated GFR (MDRD) 59.8 ml/min Glucose 105 (74-106) mg/dL Calcium 8.8 (8.5-10.1) mg/dL Phosphorus 2.4 L (2.6-4.7) mg/dL Magnesium 1.7 L (1.8-2.4) mg/dL B-Natriuretic Peptide (<100) PG/ML Urine Color Urine Appearance Urine pH (5.0-8.0) Ur Specific [place] (1.001-1.035) Urine Protein (NEGATIVE) mg/dL Urine Glucose (UA) (NEGATIVE) mg/dL Urine Ketones (NEGATIVE) mg/dL Urine Occult Blood (NEGATIVE) Urine Nitrite (NEGATIVE) Urine Bilirubin (NEGATIVE) Urine Urobilinogen (<2.0) EU/dL Ur Leukocyte Esterase (NEGATIVE) Urine RBC (0-2/HPF) Urine WBC (0-5/HPF) Ur Epithelial Cells (NONE-FEW) Urine Bacteria (NEGATIVE) Junior Results Last 24 Hours: Microbiology 04/19/19 09:25 Influenza Type A Antigen Screen - Final Nasopharyngeal Swab NEGATIVE INFLUENZA A VIRUS AG REFERENCE RANGE: NEGATIVE Influenza Type B Antigen Screen - Final NEGATIVE INFLUENZA B VIRUS AG REFERENCE RANGE: NEGATIVE Med Orders - Current: Current Medications Acetaminophen (Tylenol) 650 mg PO Q4H PRN PRN Reason: Pain (Mild 1-3)/fever Acyclovir (Zovirax) 400 mg PO TID [facility] Last Admin: 04/20/19 10:00 Dose: 400 mg Albuterol/Ipratropium (Duoneb 3.0-0.5 Mg/3 Ml) 3 ml NEB Q4HRRT [facility] Last Admin: 04/20/19 10:13 Dose: Not Given Amlodipine Besylate (Norvasc) 10 mg PO BEDTIME [facility] Last Admin: 04/19/19 20:41 Dose: 10 mg Aspirin (Halfprin) 81 mg PO DAILY [facility] Last Admin: 04/20/19 08:33 Dose: 81 mg Azithromycin (Zithromax) 250 mg PO Q24H [facility] Last Admin: 04/20/19 08:33 Dose: 250 mg Benzonatate (Tessalon Perles) 100 mg PO TID PRN PRN Reason: Cough Last Admin: 04/20/19 10:00 Dose: 100 mg Fish Oil (Fish Oil) 1 gm PO DAILY [facility] Last Admin: 04/20/19 08:36 Dose: 1 gm Fluticasone Propionate (Flonase) 0 gm NASBOTH DAILY [facility] Last Admin: 04/20/19 09:59 Dose: 1 spray Hydrochlorothiazide (Hydrochlorothiazide) 25 mg PO DAILY [facility] Last Admin: 04/20/19 08:32 Dose: 25 mg Sodium Chloride (Normal Saline) 1,000 mls @ 125 mls/hr IV ASDIRECTED [facility] Last Admin: 04/20/19 02:26 Dose: 125 mls/hr Methylprednisolone Sodium Succinate (Solu-Medrol) 40 mg IVPUSH Q12H [facility] Last Admin: 04/20/19 08:28 Dose: 40 mg Oxycodone/Acetaminophen (Percocet 325-5 Mg) 1 tab PO TID PRN PRN Reason: Pain Sodium Phosphate (Neutra-Phos) 250 mg PO QID [facility] Stop: 04/21/19 00:01 Last Admin: 04/20/19 08:32 Dose: 250 mg Discontinued Medications Acyclovir (Zovirax 5% Oint) 0 gm TOP 5XDAY [facility] Last Admin: 04/20/19 06:42 Dose: Not Given Albuterol/Ipratropium (Duoneb 3.0-0.5 Mg/3 Ml) 3 ml NEB ONETIME ONE Stop: 04/19/19 09:10 Last Admin: 04/19/19 09:27 Dose: 3 ml Albuterol/Ipratropium (Duoneb 3.0-0.5 Mg/3 Ml) 3 ml NEB ONETIME ONE Stop: 04/19/19 10:08 Last Admin: 04/19/19 10:17 Dose: 3 ml Albuterol/Ipratropium (Duoneb 3.0-0.5 Mg/3 Ml) 3 ml NEB Q4HRRT PRN PRN Reason: Shortness Of Breath/wheezing Last Admin: 04/20/19 09:21 Dose: 3 ml Azithromycin (Zithromax) 500 mg PO Q24H ONE Stop: 04/19/19 14:28 Last Admin: 04/19/19 14:49 Dose: 500 mg Sodium Chloride (Normal Saline) 1,000 mls @ 500 mls/hr IV .BOLUS ONE Stop: 04/19/19 14:41 Last Admin: 04/19/19 12:53 Dose: 500 mls/hr Magnesium Sulfate 2 gm/ Premix 50 mls @ 50 mls/hr IV ONETIME ONE Stop: 04/20/19 09:10 Last Admin: 04/20/19 08:28 Dose: 50 mls/hr Iopamidol (Isovue Multipack-370 (76%)) 50 ml IVPUSH ONETIME ONE Stop: 04/19/19 13:41 Last Admin: 04/19/19 13:41 Dose: 50 ml Potassium Chloride (Potassium Chloride) 40 meq PO ONETIME ONE Stop: 04/19/19 19:25 Last Admin: 04/19/19 20:41 Dose: 40 meq Prednisone (Prednisone) 40 mg PO ONETIME ONE Stop: 04/19/19 11:02 Last Admin: 04/19/19 11:08 Dose: 40 mg - Exam Quality Assessment: DVT Prophylaxis. No: Supplemental Oxygen General: Alert, Oriented, Cooperative Neck: Supple, Other (sinus pressure and pain to palpation). No: Lymphadenopathy Lungs: Clear to Auscultation. No: Normal Respiratory Effort (dyspnea) Cardiovascular: Regular Rate, Regular Rhythm GI/Abdominal Exam: Normal Bowel Sounds, Soft, Non-Tender Extremities: Normal Inspection, Normal Range of Motion, Non-Tender, No Pedal Edema Neurological: No New Focal Deficit Psy/Mental Status: Alert, Normal Affect, Normal Mood Sepsis Event Note - Evaluation Sepsis Screening Result: Sepsis Risk - Focused Exam Vital Signs: Vital Signs Temp Pulse Resp BP Pulse Ox 04/20/19 07:53 98.3 F 95 16 141/64 H 93 L 04/20/19 04:59 97.9 F 120 H 18 137/71 95 04/20/19 00:22 98.2 F 81 16 131/58 L 94 L Date Exam was Performed: 04/20/19 Time Exam was Performed: 13:44 - Problem List & Annotations (1) Bronchitis SNOMED Code(s): 23226922 Code(s): J40 - BRONCHITIS, NOT SPECIFIED ACUTE OR CHRONIC Status: Acute Current Visit: Yes (2) COPD (chronic obstructive pulmonary disease) SNOMED Code(s): 67050663 Code(s): J44.9 - CHRONIC OBSTRUCTIVE PULMONARY DISEASE, UNSPECIFIED Status : Acute Current Visit: Yes (3) Essential hypertension SNOMED Code(s): 15799357 Code(s): I10 - ESSENTIAL (PRIMARY) HYPERTENSION Status: Acute Current Visit: No - Problem List Review Problem List Initiated/Reviewed/Updated: Yes - My Orders Last 24 Hours: My Active Orders 04/20/19 08:12 Phosphorus #1 [Neutra-Phos] 250 mg PO QID 04/20/19 09:30 Acyclovir [Zovirax] 400 mg PO TID 04/20/19 09:31 RT Aerosol Therapy [RC] ASDIRECTED 04/20/19 09:32 Benzonatate [Tessalon Perles] 100 mg PO TID PRN 04/20/19 09:45 Fluticasone Propionate [Flonase] See Dose Instructions NASBOTH DAILY 04/20/19 10:00 Albuterol/Ipratropium [DuoNeb 3.0-0.5 MG/3 ML] 3 ml NEB Q4HRRT - Plan Plan:: This 83 year old female admittd for COPD/ bronchitis vs reactive airway with URI. 1. COPD/Bronchitis vs reactive airway - cont IV steroids for now - cont oxygenation via nasal cannula as needed - DuoNebs scheduled for shortness of breath - Azithromycin 250 PO daily - Add Tessalon pearls for cough as well as Flonase 2. Oral herpes - Oral Acyclovir 3. HTN - Continue Amlodipine, hold lopressor for now. - Monitor HR on telemetry - monitor and replete electrolytes VTE prophylaxis: SCD Dispo: 1 day
[2019-04-20] MEDS: amLODIPine 5 MG Tab PO SCH (21:37)
[2019-04-21] MEDS: Phosphorus #1 250 MG Tab PO SCH (01:12)
[2019-04-21] MEDS: Albuterol/Ipratropium 3.0-0.5 MG/3 ML Neb Soln NEB SCH ×3 (01:13→09:31)
[2019-04-21] MEDS: Sodium Chloride 0.9% 1,000 ML IV SCH (04:21)
[2019-04-21] MEDS: Acyclovir 200 MG Cap PO SCH (05:53)
[2019-04-21 06:34] LABS: CARBON DIOXIDE,CO2 21.4 mmol/L (21.0-32.0); POTASSIUM,K 4.1 mmol/L (3.5-5.1)
[2019-04-21] MEDS ORDERED: predniSONE 20 MG Tab PO SCH (08:38)
[2019-04-21] MEDS: Hydrochlorothiazide 25 MG Tab PO SCH (09:07)
[2019-04-21] MEDS: Aspirin 81 MG Tab.EC PO SCH (09:08)
[2019-04-21] MEDS: Fish Oil/Omega-3 Fatty Acids 1 Gm Cap PO SCH (09:08)
[2019-04-21] MEDS: Azithromycin 250 MG Tab PO SCH (09:08)
[2019-04-21] MEDS: Fluticasone Propionate Nasal Spray 16 GM Bottle NASBOTH SCH (09:09)
[2019-04-21 11:54] VITALS: BP 130/60; PULSE 100
--- NOTE | 2019-04-21 12:33 | PCM.DCSUM1 ---
Discharge Summary - Hospital Course Brief History: 83-year-old female history of hypertension nonsmoker presenting to ER for cough and shortness of breath. Her symptoms have been going on for 2 weeks. She says she has not had decreased exercise tolerance but that she hasn' t really exert herself. denied chest pain, denied fever. No vomiting no leg swelling. Patient is concerned that she may have the flu. Diagnosis: Stroke: No - Discharge Data Discharge Date: 04/21/19 Discharge Disposition: Home, Self-Care 01 Condition: Good - Referral to Home Health Primary Care Physician: Danny Savage MD - Discharge Diagnosis/Problem(s) (1) Bronchitis SNOMED Code(s): 38565120 ICD Code: J40 - BRONCHITIS, NOT SPECIFIED ACUTE OR CHRONIC Status: Acute (2) COPD (chronic obstructive pulmonary disease) SNOMED Code(s): 77983073 ICD Code: J44.9 - CHRONIC OBSTRUCTIVE PULMONARY DISEASE, UNSPECIFIED Status : Acute (3) Essential hypertension SNOMED Code(s): 63946233 ICD Code: I10 - ESSENTIAL (PRIMARY) HYPERTENSION Status: Acute - Patient Instructions Diet: Regular Diet as Tolerated Activity: As Tolerated, No Strenuous Activities, Rest and Relax Today Showering/Bathing: May Shower Notify Provider of: Fever, Increased Pain, Swelling and Redness, Drainage, Nausea and/or Vomiting - Discharge Plan *PRESCRIPTION DRUG MONITORING PROGRAM REVIEWED*: Not Applicable *COPY OF PRESCRIPTION DRUG MONITORING REPORT IN PATIENT NING: Not Applicable Prescriptions/Med Rec: Acyclovir 400 mg PO TID #12 tablet Albuterol Sulfate [Albuterol Sulfate Hfa] 18 gm IH Q4H PRN #1 hfa.aer.ad PRN Reason: wheezing, shortness of breath Azithromycin [Zithromax] 250 mg PO Q24H #5 tablet Benzonatate [Tessalon Perle] 100 mg PO TID PRN #30 capsule PRN Reason: Cough predniSONE 40 mg PO WITHBREAKFAST #10 tablet Home Medications: Home Meds Aspirin [Low Dose Aspirin EC] 1 tab PO DAILY 03/21/14 [History] Losartan/Hydrochlorothiazide [Losartan-HCTZ 100-25 MG] 100 mg PO DAILY 03/21/14 [History] Metoprolol Succinate 100 mg PO DAILY 03/21/14 [History] Potassium Chloride 10 meq PO BID 01/25/15 [History] amLODIPine [Norvasc] 10 mg PO BEDTIME 08/18/15 [History] Cem/D3/Mag11/Zinc/Insecticide Maker/[place]/Bor [Caltrate 600+D Plus Tablet] 1 each PO DAILY [History] oxyCODONE HCl/Acetaminophen [Oxycodone-Acetaminophen 5-325] 1 tab PO TID PRN [History] [place]-3 Fatty Acids/Fish Oil [Fish Oil 1,200 mg Softgel] 1 cap DAILY 04/19/19 [ History] hydroCHLOROthiazide [Hydrochlorothiazide] 25 mg PO DAILY 04/19/19 [History] Acyclovir 400 mg PO TID #12 tablet 04/21/19 [Rx] Albuterol Sulfate [Albuterol Sulfate Hfa] 18 gm IH Q4H PRN #1 hfa.aer.ad [Rx] Azithromycin [Zithromax] 250 mg PO Q24H #5 tablet 04/21/19 [Rx] Benzonatate [Tessalon Perle] 100 mg PO TID PRN #30 capsule 04/21/19 [Rx] Fluticasone Propionate [Flonase] 1 spray NASBOTH DAILY #1 bottle 04/21/19 [Rx] predniSONE 40 mg PO WITHBREAKFAST #10 tablet 04/21/19 [Rx] Oxygen Therapy Mode: Room Air Patient Handouts: Albuterol inhalation powder, Chronic Obstructive Pulmonary Disease, [id number], Azithromycin tablets, Prednisone tablets, Acyclovir tablets or capsules, Acute Bronchitis, Adult, Benzonatate capsules Referrals: Danny Savage MD [Primary Care Provider] - 04/28/19 10:00 am - Discharge Summary/Plan Comment DC Time >30 min.: No Discharge Summary/Plan Comment: Admitting Diagnoses: Bronchitis reactive airway disease URI viral illness Discharge Diagnoses: Bronchitis reactive airway disease URI viral illness Oral herpes Joselyn was admitted secondary to shortness of breath and wheezing. She was treated for acute bronchitis likely related to URI viral illness, some remote history of smoking and asthma. Could be component of COPD, will need outpatient follow up with PFT to further evaluate. She was treated with Solumedrol, Azithromycin, and Duonebs. She disliked the nebs as she became very jittery, but they did help. Today she is feeling much better, still has cough intermittently, non productive. Nasal congestion improving. She is not hypoxic. VS stable. She will be discharged home today with Prednisone for 5 more days, Azithromycin for 4 more days and Albuterol inhaler. She was also started on Acyclovir, as oral herpes noted as well. She is to follow up with PCP as outpatient, return to the ED or clinic sooner if concerns should arise. - Patient Data Vitals - Most Recent: Last Vital Signs Temp 98.1 F 04/21/19 11:53 Pulse 100 04/21/19 11:53 Resp 16 04/21/19 11:53 BP 130/60 04/21/19 11:53 Pulse Ox 97 04/21/19 11:53 Weight - Most Recent: 72.575 kg I&O - Last 24 hours: Intake & Output 04/20/19 04/21/19 04/21/19 22:59 06:59 14:59 Intake Total 1824 2450 Output Total 1100 900 Balance 724 1550 Lab Results - Last 24 hrs: Laboratory Results - last 24 hr 04/21/19 04/21/19 Range/Units 06:05 06:05 WBC 11.79 H (4.0-11.0) K/uL RBC 3.93 L (4.30-5.90) M/uL Hgb 10.7 L (12.0-16.0) g/dL Hct 32.4 L (36.0-46.0) % MCV 82.4 (80.0-98.0) fL MCH 27.2 (27.0-32.0) pg MCHC 33.0 (31.0-37.0) g/dL RDW Std Deviation 40.7 (28.0-62.0) fl RDW Coeff of Cuauhtemoc 13 (11.0-15.0) % Plt Count 331 (150-400) K/uL MPV 8.90 (7.40-12.00) fL Neut % (Auto) 90.2 H (48.0-80.0) % Lymph % (Auto) 6.4 L (16.0-40.0) % [place] % (Auto) 3.3 (0.0-15.0) % Eos % (Auto) 0.0 (0.0-7.0) % Baso % (Auto) 0.1 (0.0-1.5) % Neut # (Auto) 10.6 H (1.4-5.7) K/uL Lymph # (Auto) 0.8 (0.6-2.4) K/uL [place] # (Auto) 0.4 (0.0-0.8) K/uL Eos # (Auto) 0.0 (0.0-0.7) K/uL Baso # (Auto) 0.0 (0.0-0.1) K/uL Nucleated RBC % 0.0 /100WBC Nucleated RBCs # 0 K/uL Sodium 135 L (136-145) mmol/L Potassium 4.1 (3.5-5.1) mmol/L Chloride 100 (98-107) mmol/L Carbon Dioxide 21.4 (21.0-32.0) mmol/L BUN 15 (7.0-18.0) mg/dL Creatinine 0.9 (0.6-1.0) mg/dL Est Cr Clr Drug Dosing 38.49 mL/min Estimated GFR (MDRD) 59.7 ml/min Glucose 136 H (74-106) mg/dL Calcium 9.1 (8.5-10.1) mg/dL Magnesium 1.8 (1.8-2.4) mg/dL Med Orders - Current: Current Medications Discontinued Medications Acetaminophen (Tylenol) 650 mg PO Q4H PRN PRN Reason: Pain (Mild 1-3)/fever Acyclovir (Zovirax 5% Oint) 0 gm TOP 5XDAY [facility] Last Admin: 04/20/19 06:42 Dose: Not Given Acyclovir (Zovirax) 400 mg PO TID [facility] Last Admin: 04/21/19 05:53 Dose: 400 mg Albuterol/Ipratropium (Duoneb 3.0-0.5 Mg/3 Ml) 3 ml NEB ONETIME ONE Stop: 04/19/19 09:10 Last Admin: 04/19/19 09:27 Dose: 3 ml Albuterol/Ipratropium (Duoneb 3.0-0.5 Mg/3 Ml) 3 ml NEB ONETIME ONE Stop: 04/19/19 10:08 Last Admin: 04/19/19 10:17 Dose: 3 ml Albuterol/Ipratropium (Duoneb 3.0-0.5 Mg/3 Ml) 3 ml NEB Q4HRRT PRN PRN Reason: Shortness Of Breath/wheezing Last Admin: 04/20/19 09:21 Dose: 3 ml Albuterol/Ipratropium (Duoneb 3.0-0.5 Mg/3 Ml) 3 ml NEB Q4HRRT [facility] Last Admin: 04/21/19 09:31 Dose: 3 ml Amlodipine Besylate (Norvasc) 10 mg PO BEDTIME [facility] Last Admin: 04/20/19 21:37 Dose: 10 mg Aspirin (Halfprin) 81 mg PO DAILY [facility] Last Admin: 04/21/19 09:08 Dose: 81 mg Azithromycin (Zithromax) 500 mg PO Q24H ONE Stop: 04/19/19 14:28 Last Admin: 04/19/19 14:49 Dose: 500 mg Azithromycin (Zithromax) 250 mg PO Q24H [facility] Last Admin: 04/21/19 09:08 Dose: 250 mg Benzonatate (Tessalon Perles) 100 mg PO TID PRN PRN Reason: Cough Last Admin: 04/20/19 10:00 Dose: 100 mg Fish Oil (Fish Oil) 1 gm PO DAILY [facility] Last Admin: 04/21/19 09:08 Dose: 1 gm Fluticasone Propionate (Flonase) 0 gm NASBOTH DAILY [facility] Last Admin: 04/21/19 09:09 Dose: 2 spray Hydrochlorothiazide (Hydrochlorothiazide) 25 mg PO DAILY [facility] Last Admin: 04/21/19 09:07 Dose: 25 mg Sodium Chloride (Normal Saline) 1,000 mls @ 500 mls/hr IV .BOLUS ONE Stop: 04/19/19 14:41 Last Admin: 04/19/19 12:53 Dose: 500 mls/hr Sodium Chloride (Normal Saline) 1,000 mls @ 125 mls/hr IV ASDIRECTED [facility] Last Admin: 04/21/19 04:21 Dose: 125 mls/hr Magnesium Sulfate 2 gm/ Premix 50 mls @ 50 mls/hr IV ONETIME ONE Stop: 04/20/19 09:10 Last Admin: 04/20/19 08:28 Dose: 50 mls/hr Iopamidol (Isovue Multipack-370 (76%)) 50 ml IVPUSH ONETIME ONE Stop: 04/19/19 13:41 Last Admin: 04/19/19 13:41 Dose: 50 ml Methylprednisolone Sodium Succinate (Solu-Medrol) 40 mg IVPUSH Q12H [facility] Last Admin: 04/20/19 21:43 Dose: 40 mg Oxycodone/Acetaminophen (Percocet 325-5 Mg) 1 tab PO TID PRN PRN Reason: Pain Potassium Chloride (Potassium Chloride) 40 meq PO ONETIME ONE Stop: 04/19/19 19:25 Last Admin: 04/19/19 20:41 Dose: 40 meq Prednisone (Prednisone) 40 mg PO ONETIME ONE Stop: 04/19/19 11:02 Last Admin: 04/19/19 11:08 Dose: 40 mg Prednisone (Prednisone) 40 mg PO WITHBREAKFAST [facility] Last Admin: 04/21/19 09:09 Dose: 40 mg Sodium Phosphate (Neutra-Phos) 250 mg PO QID [facility] Stop: 04/21/19 00:01 Last Admin: 04/21/19 01:12 Dose: 250 mg
== END 2019-04-21 12:00 | disposition home or self-care (01) ==
LOC: MW.ED 08:49 → MW.MS 15:19
PROVIDERS: ADMIT Student in an Organized Health Care Education/Training Program; ATTEND Student in an Organized Health Care Education/Training Program
DX: J44.9 Chronic obstructive pulmonary disease, unspecified (principal); I10 Essential (primary) hypertension; J06.9 Acute upper respiratory infection, unspecified; B00.89 Other herpesviral infection; Z79.82 Long term (current) use of aspirin; Z79.899 Other long term (current) drug therapy
CPT/HCPCS: 36415; 71046; 71275; 80048; 80053; 81001; 83735; 83880; 84100; 84484; 85025; 85379; 87804; 93005; 94640; A9270; J2920; J3475; J7030; Q9967; J7620-GY

== ENCOUNTER 2019-11-21 21:08 | Emergency (ER) | payer MEDICARE, BC ==
[2019-11-21] MEDS ORDERED: Sodium Chloride 0.9% 10 ML Syringe FLUSH PRN (21:21)
[2019-11-21] MEDS ORDERED: Sodium Chloride 0.9% 2.5 ML Syringe FLUSH PRN (21:21)
--- NOTE | 2019-11-21 21:26 | EDM.PDOC ---
ED HPI GENERAL MEDICAL PROBLEM - General Chief Complaint: Cardiovascular Problem Stated Complaint: elevated bp Time Seen by Provider: 11/21/19 21:16 - History of Present Illness INITIAL COMMENTS - FREE TEXT/NARRATIVE: History of present illness: Patient had a mild headache which she noted in retrospect after she did a routine blood pressure check and found her pressure over 200. The patient monitors her blood pressure. She is on 5 medicine and for many many years she has had stepwise increase in her medications. 6 to 8 weeks ago she had a mild adjustment of her dosages. The patient says she really would no known her blood pressure was elevated except she took it. She does not have any chest pain shortness of breath. She is not treated for coronary vessel disease or high cholesterol. She is treated for hypertension. She is not diabetic and does not smoke. No neurologic symptoms other than a mild headache [] Review of systems: As per history of present illness and below otherwise all systems reviewed and negative. Past medical history: As per history of present illness and as reviewed below otherwise noncontributory. Surgical history: As per history of present illness and as reviewed below otherwise noncontributory. Social history: No reported history of drug or alcohol abuse. Family history: As per history of present illness and as reviewed below otherwise noncontributory. Physical exam: Constitutional - well developed, well-nourished and in no acute distress HEENT - normocephalic, no evidence of trauma - external nose and mouth normal - no mass in neck and no JVD - mucosae moist EYES - full EOM, PERRL, no icterus - no evidence of inflammation, injection, or drainage Respiratory - no respiratory distress, equal bilateral expansion, lungs clear to auscultation and no abnormal lung sounds Cardiovascular - Regular Rhythm with S1 and S2 appreciated and no murmur, gallop or rub. GI - abdomen soft without distension or organomegaly - normal bowel sounds - no guard or rebound Musculoskeletal no gross deformity of long bones or joints - no tenderness, swelling or edema Neurologic -fast exam in my customary neurologic exam are within normal limits alert and oriented times four - CN II-XII grossly intact - motor sensory and coordination symmetrically normal Psychiatric - appropriate mood and affect with normal thought content Hematologic - No petechiae or purpura - mucosa appropriate color and sclera not pale - normal nail bed color and refill Integument - no rash or evidence of trauma - normal turgor Diagnostics: [] Therapeutics: [] Impression: [] Plan: [] Definitive disposition and diagnosis as appropriate pending reevaluation and review of above. - Related Data Allergies Allergy/AdvReac Type Severity Reaction Status Date / Time No Known Allergies Allergy Verified 11/21/19 21:12 Home Meds: Home Meds Aspirin [Low Dose Aspirin EC] 1 tab PO DAILY 03/21/14 [History] Losartan/Hydrochlorothiazide [Losartan-HCTZ 100-25 MG] 100 mg PO DAILY 03/21/14 [History] Metoprolol Succinate 100 mg PO DAILY 03/21/14 [History] Potassium Chloride 10 meq PO BID 03/21/14 [History] amLODIPine [Norvasc] 10 mg PO BEDTIME 08/18/15 [History] Cem/D3/Mag11/Zinc/Youth Career Specialist/[place]/Bor [Caltrate 600+D Plus Tablet] 1 each PO DAILY 05/12/16 [History] oxyCODONE HCl/Acetaminophen [Oxycodone-Acetaminophen 5-325] 1 tab PO TID PRN 02/12/18 [History] [place]-3 Fatty Acids/Fish Oil [Fish Oil 1,200 mg Softgel] 1 cap DAILY 04/19/19 [History] hydroCHLOROthiazide [Hydrochlorothiazide] 25 mg PO DAILY 04/19/19 [History] Acyclovir 400 mg PO TID #12 tablet 04/21/19 [Rx] Albuterol Sulfate [Albuterol Sulfate Hfa] 18 gm IH Q4H PRN #1 hfa.aer.ad 04/21/19 [Rx] Azithromycin [Zithromax] 250 mg PO Q24H #5 tablet 04/21/19 [Rx] Benzonatate [Tessalon Perle] 100 mg PO TID PRN #30 capsule 04/21/19 [Rx] Fluticasone Propionate [Flonase] 1 spray NASBOTH DAILY #1 bottle 04/21/19 [Rx] predniSONE 40 mg PO WITHBREAKFAST #10 tablet 04/21/19 [Rx] Past Medical History HEENT History: Reports: None Cardiovascular History: Reports: Hypertension Respiratory History: Reports: None Gastrointestinal History: Reports: None Genitourinary History: Reports: None HAY BUCKLER History: Reports: None Musculoskeletal History: Reports: None, Back Pain, Chronic Neurological History: Reports: None Psychiatric History: Reports: Anxiety Endocrine/Metabolic History: Reports: None Insulin Pump Model and Mandarin Tutor: None Hematologic History: Reports: None Immunologic History: Reports: None Oncologic (Cancer) History: Reports: Breast Other Oncologic History: right breast Dermatologic History: Reports: None - Infectious Disease History Infectious Disease History: Reports: None - Past Surgical History Head Surgeries/Procedures: Reports: None Female Surgical History: Reports: Breast Biopsy, Hysterectomy Oncologic Surgical History: Reports: Biopsy of Breast Social & Family History - Family History Family Medical History: Noncontributory - Tobacco Use Smoking Status *Q: Never Smoker - Caffeine Use Caffeine Use: Reports: Coffee - Recreational Drug Use Recreational Drug Use: No ED ROS GENERAL - Review of Systems Review Of Systems: Comprehensive ROS is negative, except as noted in HPI. ED EXAM, GENERAL - Physical Exam Exam: See Below Free Text/Narrative:: My physical exam as in the HPI EKG INTERPRETATION EKG Date: 11/21/19 Rhythm: NSR Rate (Beats/Min): 90 QRS: Other (Consistent with left ventricular hypertrophy) Comparison: No Change (Compared to 04/19/2019) EKG Interpretation Comments: EKG shows no acute injury. Course - Vital Signs Text/Narrative:: His blood pressure came down relaxing in the emergency department. She admits at home she worries about things she has no control over. Her neighbor told her to relax about things that she cannot control and she knows she needs to do this. I advised her not to start any new blood pressure medicines at this point since it came down relaxing in the emergency department. Last Recorded V/S: Last Vital Signs Temp 96.5 F L 11/21/19 21:12 Pulse 77 11/21/19 22:00 Resp 18 11/21/19 22:00 BP 148/69 H 11/21/19 22:00 Pulse Ox 96 11/21/19 22:00 - Orders/Labs/Meds Orders: Active Orders 24 hr Category Date Time Status Cardiac Monitoring [RC] . DIRECTED Care 11/21/19 21:21 Active EKG Documentation Completion [RC] AM Care 11/21/19 21:21 Active Sodium Chloride 0.9% [Saline Flush] Med 11/21/19 21:21 Active 10 ml FLUSH ASDIRECTED PRN Sodium Chloride 0.9% [Saline Flush] Med 11/21/19 21:21 Active 2.5 ml FLUSH ASDIRECTED PRN Saline Lock Insert [OM.PC] Stat Oth 11/21/19 21:21 Ordered Medication Orders Sodium Chloride (Saline Flush) 10 ml FLUSH ASDIRECTED PRN PRN Reason: Keep Vein Open Sodium Chloride (Saline Flush) 2.5 ml FLUSH ASDIRECTED PRN PRN Reason: Keep Vein Open Labs: Laboratory Tests 11/21/19 11/21/19 11/21/19 Range/Units 21:25 21:25 22:25 WBC 7.25 (4.0-11.0) K/uL RBC 4.21 L (4.30-5.90) M/uL Hgb 12.0 (12.0-16.0) g/dL Hct 36.7 (36.0-46.0) % MCV 87.2 (80.0-98.0) fL MCH 28.5 (27.0-32.0) pg MCHC 32.7 (31.0-37.0) g/dL RDW Std Deviation 43.2 (28.0-62.0) fl RDW Coeff of [place]em[place] 13 (11.0-15.0) % Plt Count 200 (150-400) K/uL MPV 9.50 (7.40-12.00) fL Neut % (Auto) 34.5 L (48.0-80.0) % Lymph % (Auto) 49.8 H (16.0-40.0) % [place] % (Auto) 11.7 (0.0-15.0) % Eos % (Auto) 3.3 (0.0-7.0) % Baso % (Auto) 0.7 (0.0-1.5) % Neut # (Auto) 2.5 (1.4-5.7) K/uL Lymph # (Auto) 3.6 H (0.6-2.4) K/uL [place] # (Auto) 0.9 H (0.0-0.8) K/uL Eos # (Auto) 0.2 (0.0-0.7) K/uL Baso # (Auto) 0.1 (0.0-0.1) K/uL Nucleated RBC % 0.0 /100WBC Nucleated RBCs # 0 K/uL Sodium 137 (136-145) mmol/L Potassium 4.2 (3.5-5.1) mmol/L Chloride 102 (98-107) mmol/L Carbon Dioxide 24.9 (21.0-32.0) mmol/L BUN 20 H (7.0-18.0) mg/dL Creatinine 1.2 H (0.6-1.0) mg/dL Est Cr Clr Drug Dosing 32.67 mL/min Estimated GFR (MDRD) 42.8 ml/min Glucose 111 H (74-106) mg/dL Calcium 9.1 (8.5-10.1) mg/dL Total Bilirubin 0.3 (0.2-1.0) mg/dL AST 17 (15-37) IU/L ALT 23 (14-63) IU/L Alkaline Phosphatase 89 (46-116) U/L Total Protein 7.6 (6.4-8.2) g/dL Albumin 3.8 (3.4-5.0) g/dL Globulin 3.8 (2.6-4.0) g/dL Albumin/Globulin Ratio 1.0 (0.9-1.6) Urine Color YELLOW Urine Appearance CLEAR Urine pH 5.5 (5.0-8.0) Ur Specific [place] 1.015 (1.001-1.035) Urine Protein NEGATIVE (NEGATIVE) mg/dL Urine Glucose (UA) NEGATIVE (NEGATIVE) mg/dL Urine Ketones NEGATIVE (NEGATIVE) mg/dL Urine Occult Blood NEGATIVE (NEGATIVE) Urine Nitrite NEGATIVE (NEGATIVE) Urine Bilirubin NEGATIVE (NEGATIVE) Urine Urobilinogen 0.2 (<2.0) EU/dL Ur Leukocyte Esterase TRACE H (NEGATIVE) Urine RBC 0-1 (0-2/HPF) Urine WBC 0-2 (0-5/HPF) Ur Epithelial Cells FEW (NONE-FEW) Urine Bacteria RARE (NEGATIVE) Meds: Medications Generic Name Dose Route Start Last Admin Trade Name Freq PRN Reason Stop Dose Admin Sodium Chloride 10 ml 11/21/19 21:21 Saline Flush FLUSH ASDIRECTED PRN Keep Vein Open Sodium Chloride 2.5 ml 11/21/19 21:21 Saline Flush FLUSH ASDIRECTED PRN Keep Vein Open Departure - Departure Time of Disposition: 22:54 Disposition: Home, Self-Care 01 Condition: Good Clinical Impression: Essential hypertension Instructions: Hypertension, Adult, [id number] Referrals: Danny Savage MD [Primary Care Provider] - Forms: ED Department Discharge Additional Instructions: Relaxation is the [place] tor[place]. If we give you medicine to get your blood pressure down and at the same time you relax and it comes down you might go too low and it might be dangerous. [facility] - Primary Care [address] [place] [id number] [facility] [address] [place] [id number] The following information is given to patients seen in the emergency department who are being discharged to home. This information is to outline your options for follow-up care. We provide all patients seen in our emergency department with a follow-up referral. The need for follow-up, as well as the timing and circumstances, are variable depending upon the specifics of your emergency department visit. If you don't have a primary care physician on staff, we will provide you with a referral. We always advise you to contact your personal physician following an emergency department visit to inform them of the circumstance of the visit and for follow-up with them and/or the need for any referrals to a consulting specialist. The emergency department will also refer you to a specialist when appropriate. This referral assures that you have the opportunity for follow-up care with a specialist. All of these measure are taken in an effort to provide you with optimal care, which includes your follow-up. Under all circumstances we always encourage you to contact your private physician who remains a resource for coordinating your care. When calling for follow-up care, please make the office aware that this follow-up is from your recent emergency room visit. If for any reason you are refused follow-up, please contact the [facility] Emergency Department at and asked to speak to the emergency department charge nurse. Sepsis Event Note (ED) - Evaluation Sepsis Screening Result: No Definite Risk - Focused Exam Vital Signs: Vital Signs Temp Pulse Resp BP Pulse Ox 11/21/19 22:00 77 18 148/69 H 96 11/21/19 21:45 84 15 161/74 H 96 11/21/19 21:12 96.5 F L 92 18 193/85 H 98 - My Orders Last 24 Hours: My Active Orders 11/21/19 21:21 Cardiac Monitoring [RC] . DIRECTED EKG Documentation Completion [RC] AM Sodium Chloride 0.9% [Saline Flush] 10 ml FLUSH ASDIRECTED PRN Sodium Chloride 0.9% [Saline Flush] 2.5 ml FLUSH ASDIRECTED PRN Saline Lock Insert [OM.PC] Stat - Assessment/Plan Last 24 Hours: My Active Orders 11/21/19 21:21 Cardiac Monitoring [RC] . DIRECTED EKG Documentation Completion [RC] AM Sodium Chloride 0.9% [Saline Flush] 10 ml FLUSH ASDIRECTED PRN Sodium Chloride 0.9% [Saline Flush] 2.5 ml FLUSH ASDIRECTED PRN Saline Lock Insert [OM.PC] Stat
[2019-11-21 21:50] LABS: CARBON DIOXIDE,CO2 24.9 mmol/L (21.0-32.0); POTASSIUM,K 4.2 mmol/L (3.5-5.1)
[2019-11-21 22:27] VITALS: BP 148/69; PULSE 77
== END 2019-11-21 23:15 | disposition home or self-care (01) ==
LOC: MW.ED 21:08
DX: I10 Essential (primary) hypertension (principal); Z79.82 Long term (current) use of aspirin; Z79.899 Other long term (current) drug therapy; Z90.710 Acquired absence of both cervix and uterus
CPT/HCPCS: 36415; 80053; 81001; 85025; 93005; 99283; 99283-25

== ENCOUNTER 2020-04-09 22:49 | Emergency (ER) | payer MEDICARE, BC ==
[2020-04-09] MEDS ORDERED: Sodium Chloride 0.9% 10 ML Syringe FLUSH PRN (23:05)
[2020-04-09] MEDS ORDERED: Sodium Chloride 0.9% 2.5 ML Syringe FLUSH PRN (23:05)
[2020-04-09] MEDS ORDERED: Ondansetron 4 MG/2 ML SDV IVPUSH ONE (23:30)
[2020-04-09] MEDS ORDERED: Morphine 4 MG/ML Syringe IVPUSH ONE (23:30)
--- NOTE | 2020-04-09 23:32 | EDM.PDOC ---
ED HPI GENERAL MEDICAL PROBLEM - General Chief Complaint: Abdominal Pain Stated Complaint: RIGHT SIDE PAIN Time Seen by Provider: 04/09/20 22:53 - History of Present Illness INITIAL COMMENTS - FREE TEXT/NARRATIVE: 84-year-old female not on chronic pain medication at this time but remote prior history of this history of COPD history of hypertension history of breast cancer in the remote past presenting with on and off of right-sided abdominal pain for the last week. Currently 7 out of 10 denies association with food denies fevers denies dysuria or hematuria no clear exacerbating or alleviating factors radiates throughout the abdomen no chest pain no shortness of breath no other associated symptoms. Right Lower Abdomen Pain Score (Numeric/FACES): 6 - Related Data Allergies Allergy/AdvReac Type Severity Reaction Status Date / Time No Known Allergies Allergy Verified 04/09/20 23:08 Home Meds: Home Meds Aspirin [Low Dose Aspirin EC] 1 tab PO DAILY 03/21/14 [History] Losartan/Hydrochlorothiazide [Losartan-HCTZ 100-25 MG] 100 mg PO DAILY 03/21/14 [History] Metoprolol Succinate 100 mg PO DAILY 03/21/14 [History] Potassium Chloride 10 meq PO BID 03/21/14 [History] amLODIPine [Norvasc] 10 mg PO BEDTIME 08/18/15 [History] Cem/D3/Mag11/Zinc/Dry Can Tender/Norman/Bor [Caltrate 600+D Plus Tablet] 1 each PO DAILY 05/12/16 [History] oxyCODONE HCl/Acetaminophen [Oxycodone-Acetaminophen 5-325] 1 tab PO TID PRN 02/12/18 [History] Brohman-3 Fatty Acids/Fish Oil [Fish Oil 1,200 mg Softgel] 1 cap DAILY 04/19/19 [History] hydroCHLOROthiazide [Hydrochlorothiazide] 25 mg PO DAILY 04/19/19 [History] Acyclovir 400 mg PO TID #12 tablet 04/21/19 [Rx] Albuterol Sulfate [Albuterol Sulfate Hfa] 18 gm IH Q4H PRN #1 hfa.aer.ad 04/21/19 [Rx] Azithromycin [Zithromax] 250 mg PO Q24H #5 tablet 04/21/19 [Rx] Benzonatate [Tessalon Perle] 100 mg PO TID PRN #30 capsule 04/21/19 [Rx] Fluticasone Propionate [Flonase] 1 spray NASBOTH DAILY #1 bottle 04/21/19 [Rx] predniSONE 40 mg PO WITHBREAKFAST #10 tablet 04/21/19 [Rx] cephALEXin [Keflex] 500 mg PO BID 7 Days #14 cap 04/10/20 [Rx] Past Medical History HEENT History: Reports: None Cardiovascular History: Reports: Hypertension Respiratory History: Reports: None Gastrointestinal History: Reports: None Genitourinary History: Reports: None RECOVERY ANALYST History: Reports: None Musculoskeletal History: Reports: None, Back Pain, Chronic Neurological History: Reports: None Psychiatric History: Reports: Anxiety Endocrine/Metabolic History: Reports: None Insulin Pump Model and Networking Engineer: None Hematologic History: Reports: None Immunologic History: Reports: None Oncologic (Cancer) History: Reports: Breast Other Oncologic History: right breast Dermatologic History: Reports: None - Infectious Disease History Infectious Disease History: Reports: None - Past Surgical History Head Surgeries/Procedures: Reports: None Female Surgical History: Reports: Breast Biopsy, Hysterectomy Oncologic Surgical History: Reports: Biopsy of Breast Social & Family History - Family History Family Medical History: No Pertinent Family History - Caffeine Use Caffeine Use: Reports: Coffee ED ROS GENERAL - Review of Systems Review Of Systems: See Below Free Text/Narrative/Comment: General: No fever. Skin: No rash. Eyes: No vision problems. ENT: No sore throat. Neck: No neck stiffness. Respiratory: No shortness of breath. Cardiac: No chest pain. Gastrointestinal: Per HPI Urinary: No dysuria. Musculoskeletal: No myalgias/arthralgias. Neurologic: No headache. ED EXAM, GENERAL - Physical Exam Exam: See Below Free Text/Narrative:: General Appearance: No acute distress, appears comfortable Skin: No rash HEENT: Normocephalic/atraumatic, sclera anicteric, mucous membranes moist Neck: Normal range of motion Chest and Lungs: Bilateral breath sounds, clear to auscultation Cardiovascular: Regular rate and rhythm, no murmur Abdomen: Soft, right upper quadrant and right lateral abdominal tenderness no guarding or rebound Back: Normal Musculoskeletal: No edema or tenderness Neurologic: Awake, alert, no obvious deficits, moving all extremities Psychiatric: Appropriate, cooperative Course - Vital Signs Last Recorded V/S: Last Vital Signs Temp 97.6 F 04/09/20 23:05 Pulse 75 04/10/20 00:30 Resp 18 04/10/20 00:30 BP 120/63 04/10/20 00:30 Pulse Ox 96 04/10/20 00:30 - Orders/Labs/Meds Orders: Active Orders 24 hr Category Date Time Status EKG Documentation Completion [RC] STAT Care 04/09/20 23:32 Active Sodium Chloride 0.9% [Saline Flush] Med 04/09/20 23:05 Active 10 ml FLUSH ASDIRECTED PRN Sodium Chloride 0.9% [Saline Flush] Med 04/09/20 23:05 Active 2.5 ml FLUSH ASDIRECTED PRN Saline Lock Insert [OM.PC] Stat Oth 04/09/20 23:05 Ordered Medication Orders Sodium Chloride (Saline Flush) 10 ml FLUSH ASDIRECTED PRN PRN Reason: Keep Vein Open Sodium Chloride (Saline Flush) 2.5 ml FLUSH ASDIRECTED PRN PRN Reason: Keep Vein Open Labs: Laboratory Tests 04/09/20 04/09/20 04/09/20 Range/Units 23:25 23:25 23:25 WBC 5.61 (4.0-11.0) K/uL RBC 4.06 L (4.30-5.90) M/uL Hgb 11.8 L (12.0-16.0) g/dL Hct 35.0 L (36.0-46.0) % MCV 86.2 (80.0-98.0) fL MCH 29.1 (27.0-32.0) pg MCHC 33.7 (31.0-37.0) g/dL RDW Std Deviation 42.8 (28.0-62.0) fl RDW Coeff of Cu[place]emoc 14 (11.0-15.0) % Plt Count 203 (150-400) K/uL MPV 10.30 (7.40-12.00) fL Add Manual Diff YES Neutrophils % (Manual) 47 L (48.0-80.0) % Band Neutrophils % 1 % Lymphocytes % (Manual) 40 (16.0-40.0) % Monocytes % (Manual) 9 (0.0-15.0) % Eosinophils % (Manual) 3 (0.0-7.0) % Nucleated RBC % 0.0 /100WBC Absolute Seg Neuts 2.6 (1.4-5.7) Band Neutrophils # 0.1 Lymphocytes # (Manual) 2.2 (0.6-2.4) Monocytes # (Manual) 0.5 (0.0-0.8) Eosinophils # (Manual) 0.2 (0.0-0.7) Nucleated RBCs # 0 K/uL Lactate 0.6 (0.20-2.00) mmol/L Sodium 135 L (136-145) mmol/L Potassium 4.1 (3.5-5.1) mmol/L Chloride 99 (98-107) mmol/L Carbon Dioxide 23.9 (21.0-32.0) mmol/L BUN 27 H (7.0-18.0) mg/dL Creatinine 1.2 H (0.6-1.0) mg/dL Est Cr Clr Drug Dosing TNP Estimated GFR (MDRD) 42.8 ml/min Glucose 114 H (74-106) mg/dL Calcium 9.1 (8.5-10.1) mg/dL Total Bilirubin 0.5 (0.2-1.0) mg/dL AST 21 (15-37) IU/L ALT 18 (14-63) IU/L Alkaline Phosphatase 83 (46-116) U/L Troponin I (0.000-0.056) ng/mL Total Protein 7.5 (6.4-8.2) g/dL Albumin 3.6 (3.4-5.0) g/dL Globulin 3.9 (2.6-4.0) g/dL Albumin/Globulin Ratio 0.9 (0.9-1.6) Lipase 179 (73-393) U/L Urine Color Urine Appearance Urine pH (5.0-8.0) Ur Specific [place] (1.001-1.035) Urine Protein (NEGATIVE) mg/dL Urine Glucose (UA) (NEGATIVE) mg/dL Urine Ketones (NEGATIVE) mg/dL Urine Occult Blood (NEGATIVE) Urine Nitrite (NEGATIVE) Urine Bilirubin (NEGATIVE) Urine Urobilinogen (<2.0) EU/dL Ur Leukocyte Esterase (NEGATIVE) Urine RBC (0-2/HPF) Urine WBC (0-5/HPF) Ur Epithelial Cells (NONE-FEW) Urine Bacteria (NEGATIVE) 04/09/20 04/10/20 Range/Units 23:25 01:15 WBC (4.0-11.0) K/uL RBC (4.30-5.90) M/uL Hgb (12.0-16.0) g/dL Hct (36.0-46.0) % MCV (80.0-98.0) fL MCH (27.0-32.0) pg MCHC (31.0-37.0) g/dL RDW Std Deviation (28.0-62.0) fl RDW Coeff of [place] (11.0-15.0) % Plt Count (150-400) K/uL MPV (7.40-12.00) fL Add Manual Diff Neutrophils % (Manual) (48.0-80.0) % Band Neutrophils % % Lymphocytes % (Manual) (16.0-40.0) % Monocytes % (Manual) (0.0-15.0) % Eosinophils % (Manual) (0.0-7.0) % Nucleated RBC % /100WBC Absolute Seg Neuts (1.4-5.7) Band Neutrophils # Lymphocytes # (Manual) (0.6-2.4) Monocytes # (Manual) (0.0-0.8) Eosinophils # (Manual) (0.0-0.7) Nucleated RBCs # K/uL Lactate (0.20-2.00) mmol/L Sodium (136-145) mmol/L Potassium (3.5-5.1) mmol/L Chloride (98-107) mmol/L Carbon Dioxide (21.0-32.0) mmol/L BUN (7.0-18.0) mg/dL Creatinine (0.6-1.0) mg/dL Est Cr Clr Drug Dosing Estimated GFR (MDRD) ml/min Glucose (74-106) mg/dL Calcium (8.5-10.1) mg/dL Total Bilirubin (0.2-1.0) mg/dL AST (15-37) IU/L ALT (14-63) IU/L Alkaline Phosphatase (46-116) U/L Troponin I < 0.050 (0.000-0.056) ng/mL Total Protein (6.4-8.2) g/dL Albumin (3.4-5.0) g/dL Globulin (2.6-4.0) g/dL Albumin/Globulin Ratio (0.9-1.6) Lipase (73-393) U/L Urine Color YELLOW Urine Appearance CLOUDY Urine pH 5.5 (5.0-8.0) Ur Specific [place] 1.015 (1.001-1.035) Urine Protein NEGATIVE (NEGATIVE) mg/dL Urine Glucose (UA) NEGATIVE (NEGATIVE) mg/dL Urine Ketones NEGATIVE (NEGATIVE) mg/dL Urine Occult Blood SMALL H (NEGATIVE) Urine Nitrite NEGATIVE (NEGATIVE) Urine Bilirubin NEGATIVE (NEGATIVE) Urine Urobilinogen 0.2 (<2.0) EU/dL Ur Leukocyte Esterase LARGE H (NEGATIVE) Urine RBC 1-3 (0-2/HPF) Urine WBC TO NUMEROUS TO COUNT H (0-5/HPF) Ur Epithelial Cells FEW (NONE-FEW) Urine Bacteria 1+ H (NEGATIVE) Meds: Medications Generic Name Dose Route Start Last Admin Trade Name Freq PRN Reason Stop Dose Admin Sodium Chloride 10 ml 04/09/20 23:05 Saline Flush FLUSH ASDIRECTED PRN Keep Vein Open Sodium Chloride 2.5 ml 04/09/20 23:05 Saline Flush FLUSH ASDIRECTED PRN Keep Vein Open Discontinued Medications Generic Name Dose Route Start Last Admin Trade Name Freq PRN Reason Stop Dose Admin Sodium Chloride 1,000 mls @ 999 mls/hr 04/10/20 01:49 04/10/20 01:51 Normal Saline IV 04/10/20 02:49 999 mls/hr NOW STA Administration Iopamidol 75 ml 04/10/20 01:52 04/10/20 01:52 Isovue Multipack-370 (76%) IVPUSH 04/10/20 01:53 75 ml ONETIME STA Administration Morphine Sulfate 4 mg 04/09/20 23:30 04/09/20 23:35 Morphine IVPUSH 04/09/20 23:31 4 mg ONETIME ONE Administration Ondansetron HCl 4 mg 04/09/20 23:30 04/09/20 23:35 Zofran IVPUSH 04/09/20 23:31 4 mg ONETIME ONE Administration Departure - Departure Time of Disposition: 03:06 Disposition: Home, Self-Care 01 Condition: Good Clinical Impression: UTI (urinary tract infection) - Discharge Information *PRESCRIPTION DRUG MONITORING PROGRAM REVIEWED*: Not Applicable *COPY OF PRESCRIPTION DRUG MONITORING REPORT IN PATIENT NING: Not Applicable Prescriptions: cephALEXin [Keflex] 500 mg PO BID 7 Days #14 cap Instructions: Urinary Tract Infection, Adult Referrals: Danny Savage MD [Primary Care Provider] - 3 Days Forms: ED Department Discharge Additional Instructions: Please be sure to fill your prescription at [facility] tomorrow. The following information is given to patients seen in the emergency department who are being discharged to home. This information is to outline your options for follow-up care. We provide all patients seen in our emergency department with a follow-up referral. The need for follow-up, as well as the timing and circumstances, are variable depending upon the specifics of your emergency department visit. If you don't have a primary care physician on staff, we will provide you with a referral. We always advise you to contact your personal physician following an emergency department visit to inform them of the circumstance of the visit and for follow-up with them and/or the need for any referrals to a consulting specialist. The emergency department will also refer you to a specialist when appropriate. This referral assures that you have the opportunity for follow-up care with a specialist. All of these measure are taken in an effort to provide you with optimal care, which includes your follow-up. Under all circumstances we always encourage you to contact your private physician who remains a resource for coordinating your care. When calling for follow-up care, please make the office aware that this follow-up is from your recent emergency room visit. If for any reason you are refused follow-up, please contact the [facility] Emergency Department at and asked to speak to the emergency department charge nurse. Sepsis Event Note (ED) - Evaluation Sepsis Screening Result: No Definite Risk - Focused Exam Vital Signs: Vital Signs Temp Pulse Resp BP Pulse Ox 04/10/20 00:30 75 18 120/63 96 04/09/20 23:05 97.6 F 72 18 121/64 96 - My Orders Last 24 Hours: My Active Orders 04/09/20 23:05 Sodium Chloride 0.9% [Saline Flush] 10 ml FLUSH ASDIRECTED PRN Sodium Chloride 0.9% [Saline Flush] 2.5 ml FLUSH ASDIRECTED PRN Saline Lock Insert [OM.PC] Stat 04/09/20 23:32 EKG Documentation Completion [RC] STAT - Assessment/Plan Last 24 Hours: My Active Orders 04/09/20 23:05 Sodium Chloride 0.9% [Saline Flush] 10 ml FLUSH ASDIRECTED PRN Sodium Chloride 0.9% [Saline Flush] 2.5 ml FLUSH ASDIRECTED PRN Saline Lock Insert [OM.PC] Stat 04/09/20 23:32 EKG Documentation Completion [RC] STAT Assessment:: 84-year-old female presenting with 1 week of on and off of abdominal pain. Certainly functional abdominal pain or constipation is a consideration but patient reports that she does stool daily. Given the location biliary pathology needs to be considered less likely appendicitis given her age. Patient does not have severe pain I do not think this represents mesenteric ischemia. She does have a history of hypertension but the on and off symptoms of right-sided symptoms seem to argue against AAA or other aortic pathology. ACS also felt less likely but EKG and troponin pending. Given her age and these findings CBC CMP lipase urinalysis CT abdomen pelvis ordered. Morphine Zofran for symptoms and will reassess. 0305: On reassessment patient states that she is feeling well. She denies any pain at this time. Her labs demonstrate a normal white blood cell count is stable minimal renal insufficiency she does have a significant UTI on her urinalysis. Her CT scan is normal with the exception of findings consistent with UTI. No flank pain no fever I do not believe the patient has pyelonephritis. She feels well she has had no recent antibiotics her vital signs are good I think she is stable for outpatient management she will receive her first dose of oral antibiotics here.
[2020-04-09 23:54] LABS: BLOOD UREA NITROGEN,BUN 27 mg/dL (7.0-18.0); CARBON DIOXIDE,CO2 23.9 mmol/L (21.0-32.0); CHLORIDE,CL 99 mmol/L (98-107); GLUCOSE RANDOM 114 mg/dL (74-106); LIPASE 179 U/L (73-393); POTASSIUM,K 4.1 mmol/L (3.5-5.1); SODIUM,NA 135 mmol/L (136-145)
[2020-04-10] MEDS ORDERED: Sodium Chloride 0.9% 1,000 ML IV STA (01:49)
[2020-04-10] MEDS ORDERED: Iopamidol 755 MG/ML 500 ML Multipack Bottle IVPUSH STA (01:52)
--- NOTE | 2020-04-10 03:03 | CT ---
Indication: Right upper quadrant pain on and off for 1 week Technique: Contrast enhanced axial CT imaging through the abdomen and pelvis. 75 mL Isovue 370 contrast agent was administered intravenously. Sagittal and coronal reconstructions are provided. Comparison: None Findings: No abnormalities are demonstrated relating to the liver, gallbladder, spleen, pancreas, adrenal glands, and kidneys. A small renal cortical cyst is noted on the right. The portal vein is patent. The abdominal aorta is normal in caliber. There is no abdominal lymphadenopathy. The stomach and duodenum are unremarkable. There is no small bowel wall thickening or abnormal distention. The appendix is noninflamed. There is extensive diverticulosis of the descending and sigmoid colon. There is normal clinical thickening or mesenteric edema. There is mild urinary bladder wall thickening. A small bladder diverticulum is noted along the superior lateral moderate. The osseous structures are unremarkable. There are mild degenerative changes of the lumbar spine with mild dextroconvex curvature the included lung bases are clear. Impression: 1. Colonic diverticulosis without evidence of acute diverticulitis.. 2. Mild urinary bladder wall thickening. Correlate clinically to exclude cystitis. Please note that all CT scans at this facility use dose modulation, iterative reconstruction, and/or weight-based dosing when appropriate to reduce radiation dose to as low as reasonably achievable. Dictated by Kerri Price MD @ Apr 10 2020 3:00AM Signed by Dr. Kerri Price @ Apr 10 2020 3:00AM
[2020-04-10] MEDS ORDERED: Cephalexin 500 MG Cap PO ONE (03:08)
--- NOTE | 2020-04-10 03:15 | PCM.EKG ---
#1 Interpretation EKG Date: 04/10/20 Time: 00:10 EKG Interpretation Comments: Sinus rhythm rate of 73 prolonged AR interval at 259 some signs of LVH but no acute ischemia.
[2020-04-10 03:17] VITALS: BP 130/66; PULSE 64
== END 2020-04-10 03:25 | disposition home or self-care (01) ==
LOC: MW.ED 22:49
DX: N39.0 Urinary tract infection, site not specified (principal); I10 Essential (primary) hypertension; J44.9 Chronic obstructive pulmonary disease, unspecified; Z79.82 Long term (current) use of aspirin; Z79.899 Other long term (current) drug therapy
CPT/HCPCS: 36415; 74177; 80053; 81001; 83605; 83690; 84484; 85025; 93005; 96374; 96375; 99284; A9270; J2270; J2405; J7030; Q9967; 93010; 99283

== ENCOUNTER 2023-09-28 05:30 | Emergency (ER) | payer MEDICARE, BC ==
[2023-09-28 06:07] LABS: BASOPHILS ABSOLUTE AUTO 0.05 K/uL (0.00-0.20); BASOPHILS PERCENT AUTO 0.4 % (0.0-1.0); EOSINOPHILS ABSOLUTE AUTO 0.06 K/uL (0.00-0.45); EOSINOPHILS PERCENT AUTO 0.5 % (0.0-6.0); HEMATOCRIT 34.2 % (37.0-47.0); HEMOGLOBIN 11.5 g/dL (12.0-16.0); IMMATURE GRAN ABSOLUTE AUTO 0.05 K/uL (0.00-0.05); IMMATURE GRAN PERCENT AUTO 0.4 % (0.0-0.4); MEAN CORPUSCULAR HEMOGLOBIN 28.3 pg (28.0-32.0); MEAN CORPUSCULAR HGB CONC 33.6 g/dL (32.0-36.0); MEAN CORPUSCULAR VOLUME 84.2 fL (83.0-99.0); MEAN PLATELET VOLUME 10.1 fL (9.4-12.3); MONOCYTES ABSOLUTE AUTO 0.87 K/uL (0.00-0.80); MONOCYTES PERCENT AUTO 7.3 % (0.0-8.0); NEUTROPHILS ABSOLUTE AUTO 9.17 K/uL (1.80-7.70); NEUTROPHILS PERCENT AUTO 76.4 % (41.0-71.0); PLATELET COUNT,PLT 201 K/uL (150-400); RED BLOOD CELL COUNT 4.06 M/uL (4.10-5.30)
[2023-09-28] MEDS: Morphine 4 MG/ML Syringe IVPUSH ONE (06:13)
[2023-09-28 06:14] LABS: INR 1.11 (0.86-1.11)
[2023-09-28] MEDS: Sodium Chloride 0.9% 10 ML Syringe FLUSH PRN (06:14)
[2023-09-28] MEDS: Sodium Chloride 0.9% 2.5 ML Syringe FLUSH PRN (06:14)
[2023-09-28 06:15] LABS: APPEARANCE,URINE SLT CLOUDY; BILIRUBIN,URINE NEGATIVE (NEGATIVE); COLOR,URINE YELLOW; GLUCOSE,URINE NEGATIVE (NEGATIVE); KETONES,URINE NEGATIVE (NEGATIVE); LEUKOCYTE ESTERASE,URINE MODERATE (NEGATIVE); NITRITE,URINE NEGATIVE (NEGATIVE); OCCULT BLOOD,URINE SMALL (NEGATIVE); PH,URINE 5.5 (5.0-8.0); PROTEIN,URINE NEGATIVE (NEGATIVE); UROBILINOGEN,URINE 0.2 EU/dL (<2.0)
[2023-09-28 06:18] LABS: A/G RATIO 0.8 (0.9-1.6); ALBUMIN 3.5 g/dL (3.4-5.0); BILIRUBIN TOTAL 0.4 mg/dL (0.2-1.0); CALCIUM 9.6 mg/dL (8.5-10.1); CARBON DIOXIDE,CO2 22.6 mmol/L (21.0-32.0); CREATININE 1.1 mg/dL (0.6-1.0); EST CRCL DRUG DOSING (CG) 31.81 mL/min; POTASSIUM,K 4.1 mmol/L (3.5-5.1); PROTEIN TOTAL,TP 7.8 g/dL (6.4-8.2)
[2023-09-28 06:28] LABS: BACTERIA,URINE 1+ (NEGATIVE); EPITHELIAL CELLS,URINE OCCASIONAL (NONE-FEW); RBC,URINE 0-5 (0-2/HPF); WBC,URINE TOO NUMEROUS TO CT (0-5/HPF)
[2023-09-28 06:46] LABS: LACTIC ACID 0.9 mmol/L (0.4-2.0)
[2023-09-28] MEDS: Iopamidol 755 MG/ML 500 ML Multipack Bottle IVPUSH STA (06:47)
[2023-09-28] MEDS: cefTRIAXone 1 GM in Sodium Chloride 0.9% 50 ML IV ONE (07:13)
[2023-09-28 07:38] VITALS: BP 154/67; PULSE 82
[2023-09-28] MEDS: Sodium Chloride 0.9% 500 ML IV SCH (08:00)
[2023-09-28] MEDS: Acetaminophen 500 MG Tab PO ONE (08:01)
[2023-09-28] MEDS: Ondansetron 4 MG/2 ML SDV IVPUSH ONE (08:01)
[2023-09-28] MEDS: Ibuprofen 400 MG Tab PO ONE (08:02)
== END 2023-09-28 10:30 | disposition home or self-care (01) ==
LOC: MW.ED 05:30
DX: N12 Tubulo-interstitial nephritis, not specified as acute or chronic (principal); I10 Essential (primary) hypertension; Z90.710 Acquired absence of both cervix and uterus; Z79.899 Other long term (current) drug therapy; Z79.82 Long term (current) use of aspirin
CPT/HCPCS: 36415; 71045; 74177; 80053; 81001; 83605; 83690; 85025; 85610; 96365; 96375; 99284; A9270; J0696; J2270; J2405; J3490; J7040; Q9967

== ENCOUNTER 2024-01-14 16:16 | Emergency (ER) | payer MEDICARE, BC ==
[2024-01-14 16:43] VITALS: BP 172/79; PULSE 89
[2024-01-14] MEDS: Diphtheria,Pertussis(Acell),Tetanus Vaccine 0.5 ML Syringe IM ONE (17:13)
[2024-01-14] MEDS: Lidocaine 1% with EPINEPHrine 1:100,000 10 ML MDV INJECT ONE (17:13)
== END 2024-01-14 18:32 | disposition home or self-care (01) ==
LOC: MW.ED 16:16
DX: S01.81XA Laceration without foreign body of other part of head, initial encounter (principal); Z23 Encounter for immunization; I10 Essential (primary) hypertension; Z75.8 Other problems related to medical facilities and other health care; Z79.82 Long term (current) use of aspirin; Z79.899 Other long term (current) drug therapy; Z90.710 Acquired absence of both cervix and uterus; W19.XXXA Unspecified fall, initial encounter; W22.8XXA Striking against or struck by other objects, initial encounter
CPT/HCPCS: 12011; 70450; 70450-26; 90471; 90715; 99284-25; J3490

== ENCOUNTER 2024-11-04 18:24 | Emergency (ER) | payer MEDICARE, BC ==
[2024-11-04 19:05] LABS: BASOPHILS ABSOLUTE AUTO 0.06 K/uL (0.00-0.20); BASOPHILS PERCENT AUTO 1.0 % (0.0-1.0); EOSINOPHILS ABSOLUTE AUTO 0.20 K/uL (0.00-0.45); EOSINOPHILS PERCENT AUTO 3.4 % (0.0-6.0); IMMATURE GRAN ABSOLUTE AUTO 0.01 K/uL (0.00-0.05); IMMATURE GRAN PERCENT AUTO 0.2 % (0.0-0.4); LYMPHOCYTES ABSOLUTE AUTO 2.45 K/uL (1.00-4.80); LYMPHOCYTES PERCENT AUTO 42.1 % (24.0-44.0); MEAN PLATELET VOLUME 9.2 fL (9.4-12.3); MONOCYTES ABSOLUTE AUTO 0.67 K/uL (0.00-0.80); MONOCYTES PERCENT AUTO 11.5 % (0.0-8.0); NEUTROPHILS ABSOLUTE AUTO 2.43 K/uL (1.80-7.70); NEUTROPHILS PERCENT AUTO 41.8 % (41.0-71.0); NRBC ABSOLUTE 0.00 K/uL (0.00-0.02); NRBC PERCENT 0.0 /100WBC (0.0-0.2); PLATELET COUNT,PLT 179 K/uL (150-400); RED BLOOD CELL COUNT 3.90 M/uL (4.10-5.30); WHITE BLOOD CELL COUNT,WBC 5.82 K/uL (3.9-11.3)
[2024-11-04 19:23] LABS: BLOOD UREA NITROGEN,BUN 33.0 mg/dL (7.0-18.0); CARBON DIOXIDE,CO2 22.3 mmol/L (21.0-32.0); CHLORIDE,CL 101.0 mmol/L (98-107); CREATININE 1.4 mg/dL (0.6-1.0); EST CRCL DRUG DOSING (CG) 24.51 mL/min; GLUCOSE RANDOM 107.0 mg/dL (74-106); POTASSIUM,K 3.9 mmol/L (3.5-5.1); SODIUM,NA 134.0 mmol/L (136-145)
[2024-11-04 19:31] LABS: ESTIMATED GFR 36.0 mL/min (>60)
[2024-11-04 19:58] VITALS: BP 155/65; PULSE 77
== END 2024-11-04 19:57 | disposition home or self-care (01) ==
LOC: MW.ED 18:24
DX: I10 Essential (primary) hypertension (principal); Z79.82 Long term (current) use of aspirin; Z79.899 Other long term (current) drug therapy; Z90.710 Acquired absence of both cervix and uterus
CPT/HCPCS: 36415; 80048; 85025; 93005; 93010; 99283